=== PATIENT | male | born 1955 | race Caucasian/White ===

== ENCOUNTER 2019-07-28 13:13 | Emergency (ER) | payer MEDICARE, SELFPAY ==
[2019-07-28 13:25] VITALS: BP 134/66; PULSE 57; RESP 16; TEMP 36.6; O2SAT 100
--- NOTE | 2019-07-28 13:46 | ED.GENADULT ---
HPI - General Adult General Chief complaint: Wound/Laceration Stated complaint: lt hand thumb laceration Time Seen by Provider: 07/28/19 13:46 Source: patient Mode of arrival: ambulatory Limitations: no limitations History of Present Illness HPI narrative: 64-year-old male patient presents to the [facility] with complaints of a laceration to the left thumb that occurred today. Patient states that he was working on a home project and used a razor blade to cut the project and states that he actually cut his thumb. Patient is an insulin-dependent diabetic. Patient states that his last tetanus shot was about 2 years ago. Patient states he is currently on blood thinners as well so he is having a hard time trying to get the bleeding to stop. Related Data Home Medications Medication Instructions Recorded Confirmed canagliflozin [Invokana] mg 07/28/19 carvedilol 07/28/19 citalopram mg 07/28/19 clopidogrel 07/28/19 ezetimibe mg 07/28/19 insulin lispro [Humalog U-100 07/28/19 Insulin] levetiracetam PO 07/28/19 lisinopril 07/28/19 metformin mg PO 07/28/19 nifedipine PO 07/28/19 nifedipine PO 07/28/19 pravastatin 07/28/19 Allergies Allergy/AdvReac Type Severity Reaction Status Date / Time No Known Allergies Allergy Verified 07/28/19 13:28 Review of Systems Review of Systems: Narrative: CONSTITUTIONAL: Denies fever, chills, or sweats. EYES: Denies visual changes, redness, or discharge. ENT: Denies rhinorrhea, congestion, sore throat, or otalgia. CARDIOVASCULAR: Denies chest pain, palpitations, or edema. RESPIRATORY: Denies cough or dyspnea. GASTROINTESTINAL: Denies abdominal pain, nausea, vomiting, or diarrhea. GENITOURINARY: Denies dysuria or hematuria. SKIN: Denies rash or itching. Positive laceration left thumb MUSCULOSKELETAL: Denies back pain, joint pain, or myalgia. NEUROLOGIC: Denies headache, numbness, or weakness. PSYCHIATRIC: Denies anxiety or depression. PMFSH Comments At the time of my signature I agree with nursing past medical history, surgical, social, and family history. There is no relevant family history pertinent to the presenting complaint. Exam Narrative: Exam Narrative: GENERAL: Well-appearing, well-nourished, and in no acute distress. HEAD: Normocephalic, atraumatic. EYES: PERRLA and EOMI. ENT: Nares clear, no rhinorrhea or epistaxis. Mucous membranes moist. NECK: Supple. No lymphadenopathy CHEST: Clear to auscultation. No respiratory distress. HEART: Regular rate and rhythm. No murmur heard. Normal peripheral pulses. ABDOMEN: Soft, nontender, nondistended, normal active bowel sounds. EXTREMITIES: Normal range of motion. No edema. SKIN: Warm, dry, no rash. Patient has approximately [facility] 1.5 cm linear laceration over the distal left thumb. The laceration appears to be superficial there still is a little bit of oozing of blood to the thumb. Patient does have excellent range of motion to the thumb with good cap refill. NEURO: No focal deficits. Alert and oriented x3. Course Vital Signs Vital signs: Vital Signs Temperature 36.6 C 07/28/19 13:25 Pulse Rate 57 L 07/28/19 13:25 Respiratory Rate 16 07/28/19 13:25 Blood Pressure 134/66 07/28/19 13:25 Pulse Oximetry 100 07/28/19 13:25 Temperature 36.6 C 07/28/19 13:25 Pulse Rate 57 L 07/28/19 13:25 Respiratory Rate 16 07/28/19 13:25 Blood Pressure 134/66 07/28/19 13:25 Pulse Oximetry 100 07/28/19 13:25 Vital signs reviewed. The patient has been informed that they may have pre-hypertension or Hypertension based on a BP reading in the department. I recommend that the patient call the primary care provider listed on their discharge instructions or a physician of their choice this week to arrange follow up for further evaluation of possible pre-hypertension or Hypertension Procedures Laceration Laceration 1: Date: 07/28/19 Time: 14:10 Site: hand ([facility]
== END 2019-07-28 14:16 | disposition home or self-care (01) ==
PROVIDERS: Emergency Provider Nurse Practitioner Family
DX: S61.012A Laceration without foreign body of left thumb without damage to nail, initial encounter (principal); W26.8XXA Contact with other sharp object(s), not elsewhere classified, initial encounter; E78.00 Pure hypercholesterolemia, unspecified; I10 Essential (primary) hypertension; E11.9 Type 2 diabetes mellitus without complications; I25.10 Atherosclerotic heart disease of native coronary artery without angina pectoris; Z95.5 Presence of coronary angioplasty implant and graft
CPT/HCPCS: 12001; 99213; G0463

== ENCOUNTER 2020-07-20 15:45 | Emergency (ER) | payer MEDICARE, SELFPAY ==
--- NOTE | ~2020-07-20 | XR_ITS ---
EXAMINATION: XR hand LT min 3V INDICATION: Left hand pain, table saw versus hand TECHNIQUE: Three views of the left hand are obtained on four radiographs. COMPARISON: None available FINDINGS: There are large soft tissue defects at the palmar aspect of the first finger near the dista l phalanx and the second finger near the proximal and middle phalanges. No acute underlying osseous a bnormality is identified. There is severe osteoarthritis at the first carpometacarpal joint and sever al interphalangeal joints. Moderate osteoarthritis is noted in the wrist, at the second and third met acarpophalangeal joints, and in the remaining interphalangeal joints. IMPRESSION: 1. Soft tissue defects of the first and second fingers without underlying acute osseous abnormality. 2. Polyarticular osteoarthritis. Reviewed, dictated and finalized at location A. TRANSFER TECHNICIAN
[2020-07-20 15:59] VITALS: BP 168/87; PULSE 64; RESP 17; TEMP 36.3; O2SAT 97
--- NOTE | 2020-07-20 16:00 | ED.GENADULT ---
HPI - General Adult General Chief complaint: Wound/Laceration <Dl Brand MD - Last Filed: 07/20/20 18:04> Stated complaint: finger vs table saw <Dl Brand MD - Last Filed: 07/20/20 18:04> Time Seen by Provider: 07/20/20 15:52 <Dl Brand MD - Last Filed: 07/20/20 18:04> History of Present Illness HPI narrative: Patient is a 65-year-old gentleman who presents the emergency department with chief complaint of a table saw versus left hand. Patient states that he was cutting some wood and on the last cut of the day he hit his hand against a table saw. The patient reports he has a laceration to his left index finger and left thumb. The patient states that it is still bleeding reports that he takes antiplatelet therapy with Plavix for stents. Patient states that he is unsure of his last tetanus shot reports that he has [id number]. Patient reports he is able to move his hand. Patient denies any focal deficits. Patient denies any other injuries. <Dl Brand MD - Last Filed: 07/20/20 18:04> Related Data Home medications: Home Medications Medication Instructions Recorded Confirmed canagliflozin [Invokana] mg 07/28/19 carvedilol 07/28/19 citalopram mg 07/28/19 clopidogrel 07/28/19 ezetimibe mg 07/28/19 insulin lispro [Humalog U-100 07/28/19 Insulin] levetiracetam PO 07/28/19 lisinopril 07/28/19 metformin mg PO 07/28/19 nifedipine PO 07/28/19 nifedipine PO 07/28/19 pravastatin 07/28/19 <Dl Brand MD - Last Filed: 07/20/20 18:04> Allergies/adverse reactions: Allergies Allergy/AdvReac Type Severity Reaction Status Date / Time No Known Allergies Allergy Verified 07/20/20 15:46 <Dl Brand MD - Last Filed: 07/20/20 18:04> Review of Systems Review of Systems: Narrative: A 10 system review of systems was completed on the patient and is negative except for what is stated in the HPI. Nursing and ancillary documentation was reviewed. <Dl Brand MD - Last Filed: 07/20/20 18:04> PMFSH Social History Social History: Social History Gender identity (if verbalized by the patient): Male <Dl Brand MD - Last Filed: 07/20/20 18:04> Comments Past medical history significant for hypertension cardiac disease high cholesterol and diabetes Social history patient lives with his denies illicit drug use <Dl Brand MD - Last Filed: 07/20/20 18:04> Exam Narrative: Exam Narrative: GENERAL: Well-appearing, well-nourished, and in no acute distress. HEAD: Normocephalic, atraumatic. EYES: PERRLA and EOMI. ENT: Nares clear, no rhinorrhea or epistaxis. Mucous membranes moist. NECK: Supple. CHEST: Clear to auscultation. No respiratory distress. HEART: Regular rate and rhythm. No murmur heard. Normal peripheral pulses. ABDOMEN: Soft, nontender, nondistended, normal active bowel sounds. EXTREMITIES: Normal range of motion. No edema. There is a avulsion injury to the left index finger that goes through the nailbed of the left index finger from the MCP joint to the tip of the finger. There is a stellate laceration to the pad of the left. There is no signs of tendon injury SKIN: Warm, dry, no rash. NEURO: No focal deficits. Alert and oriented x3. PSYCH: Normal mood and affect. <Dl Brand MD - Last Filed: 07/20/20 18:04> Course Vital Signs Vital signs: Vital Signs Temperature 97.4 F L 07/20/20 15:59 Pulse Rate 64 07/20/20 15:59 Respiratory Rate 17 07/20/20 15:59 Blood Pressure 168/87 H 07/20/20 15:59 Pulse Oximetry 97 07/20/20 15:59 Temperature 97.4 F L 07/20/20 15:59 Pulse Rate 64 07/20/20 15:59 Respiratory Rate 17 07/20/20 15:59 Blood Pressure 168/87 H 07/20/20 15:59 Pulse Oximetry 97 07/20/20 15:59 <Dl
[2020-07-20] MEDS: ceFAZolin 2 GM/D5W 50 ML 2 GM/50 ML BAG IVPB (16:26)
[2020-07-20] MEDS: TETANUS,DIPHTHERIA,AC PERTUSSIS ADULT (0.5 ML) BOOSTRIX IM (16:26)
[2020-07-20] MEDS: MORPHINE SULFATE (*CRX) 4 MG/ML INJ IV PUSH (16:27)
[2020-07-20] MEDS: LIDOCAINE HCL 1% LOCAL INJ 20 ML VIAL (17:17)
--- NOTE | 2020-07-20 17:56 | ED.GENADULT ---
HPI - General Adult General Chief complaint: Wound/Laceration Stated complaint: finger vs table saw Time Seen by Provider: 07/20/20 15:52 Related Data Home Medications Medication Instructions Recorded Confirmed canagliflozin [Invokana] mg 07/28/19 carvedilol 07/28/19 citalopram mg 07/28/19 clopidogrel 07/28/19 ezetimibe mg 07/28/19 insulin lispro [Humalog U-100 07/28/19 Insulin] levetiracetam PO 07/28/19 lisinopril 07/28/19 metformin mg PO 07/28/19 nifedipine PO 07/28/19 nifedipine PO 07/28/19 pravastatin 07/28/19 Allergies Allergy/AdvReac Type Severity Reaction Status Date / Time No Known Allergies Allergy Verified 07/20/20 15:46 [facility] Social History Social History Gender identity (if verbalized by the patient): Male Course Vital Signs Vital signs: Vital Signs Temperature 97.4 F L 07/20/20 15:59 Pulse Rate 64 07/20/20 15:59 Respiratory Rate 17 07/20/20 15:59 Blood Pressure 168/87 H 07/20/20 15:59 Pulse Oximetry 97 07/20/20 15:59 Temperature 97.4 F L 07/20/20 15:59 Pulse Rate 64 07/20/20 15:59 Respiratory Rate 17 07/20/20 15:59 Blood Pressure 168/87 H 07/20/20 15:59 Pulse Oximetry 97 07/20/20 15:59 Procedures Laceration Laceration 1: Site: hand Side (If applicable): left Size (cm): 7 Description: irregular Depth: simple, single layer Local Anesthetic: lidocaine 1% Amount of anesthesia used (mL): 1.5 Pre-repair: irrigated extensively ====== Skin Level ====== Skin layer closed with: nylon Size (cm): 5-0 Number of sutures: 10 Technique: simple, interrupted ====== Subcutaneous Layer ====== ====== Muscle Layer ====== ====== Tendon Layer ====== Dressing: neosporin and non stick telfa dressing applied. Wound edges came together well. there is slight gaping in the center, but greatly improved and better approximated than in the original state. Surgicell applied to approx 6cm avulsion type laceration on left 2nd digit and bleeding stopped. - Radha Turner PA-C Medical Decision Making Vital Signs Vital Signs: Vital Signs Temperature 97.4 F L 07/20/20 15:59 Pulse Rate 64 07/20/20 15:59 Respiratory Rate 17 07/20/20 15:59 Blood Pressure 168/87 H 07/20/20 15:59 Pulse Oximetry 97 07/20/20 15:59 Temperature 97.4 F L 07/20/20 15:59 Pulse Rate 64 07/20/20 15:59 Respiratory Rate 17 07/20/20 15:59 Blood Pressure 168/87 H 07/20/20 15:59 Pulse Oximetry 97 07/20/20 15:59 Discharge Plan Discharge Clinical Impression: Laceration of hand, left Qualifiers: Encounter type: initial encounter Foreign body presence: without foreign body Qualified Code(s): S61.412A - Laceration without foreign body of left hand, initial encounter Patient Disposition: Home, Self-Care Condition: Stable Instructions: Antibiotic Form, Care For Your Stitches (ED), Finger Laceration (ED), Skin Avulsion (ED) Prescriptions: New cephalexin 500 mg capsule 500 mg PO Q6H 7 Days Qty: 28 RF: 0 No Action nifedipine 30 mg tablet extended release 24hr PO RF: 0 carvedilol 6.25 mg tablet RF: 0 clopidogrel 75 mg tablet RF: 0 citalopram 20 mg tablet RF: 0 pravastatin 80 mg tablet RF: 0 nifedipine 90 mg tablet extended release 24hr PO RF: 0 levetiracetam 750 mg tablet PO RF: 0 insulin lispro [Humalog U-100 Insulin] 100 unit/mL solution RF: 0 lisinopril 40 mg tablet RF: 0 metformin 500 mg tablet extended release 24 hr PO RF: 0 ezetimibe 10 mg tablet RF: 0 Invokana 300 mg tablet RF: 0 cephalexin [Keflex] 500 mg capsule 500 mg PO Q12H 5 Days Qty: 10 RF: 0 Follow-up/Referrals: Yeimi Rivera [Other] (please follow up with your primary care provider in the next 7
[2020-07-20] MEDS: CELLULOSE OXIDIZED 2 x 14 INCH XX (18:44)
[2020-07-20 20:15] VITALS: BP 145/77; PULSE 66; RESP 16; TEMP 37.1; O2SAT 97
== END 2020-07-20 20:16 | disposition home or self-care (01) ==
PROVIDERS: Emergency Provider Emergency Medicine
DX: S61.412A Laceration without foreign body of left hand, initial encounter (principal); W29.8XXA Contact with other powered hand tools and household machinery, initial encounter; Z23 Encounter for immunization
CPT/HCPCS: 12002; 73130; 90471; 90715; 96365; 96375; 99284; J0690; J2270

== ENCOUNTER 2020-08-01 11:42 | Emergency (ER) | payer MEDICARE, SELFPAY ==
[2020-08-01 11:57] VITALS: BP 157/70; PULSE 57; RESP 16; TEMP 36.1; O2SAT 100
--- NOTE | 2020-08-01 12:08 | ED.WOUNDLAC ---
HPI - Wound/Laceration General Chief Complaint: Wound/Laceration Stated Complaint: remove stitches Time Seen by Provider: 08/01/20 11:56 Source: patient, RN notes reviewed and old records reviewed Mode of arrival: ambulatory Limitations: no limitations History of Present Illness HPI narrative: Patient presents today requesting suture removal. He had 10 sutures placed in his left thumb on 07/20/2020 [facility] after it was cut on a table saw. States he has been cleaning his finger with soap and water and applying Neosporin. Denies any other difficulties or pain. Related Data Home Medications Medication Instructions Recorded Confirmed canagliflozin [Invokana] mg 07/28/19 carvedilol 07/28/19 citalopram mg 07/28/19 clopidogrel 07/28/19 ezetimibe mg 07/28/19 insulin lispro [Humalog U-100 07/28/19 Insulin] levetiracetam PO 07/28/19 lisinopril 07/28/19 metformin mg PO 07/28/19 pravastatin 07/28/19 Allergies Allergy/AdvReac Type Severity Reaction Status Date / Time No Known Allergies Allergy Verified 07/20/20 15:46 Review of Systems Review of Systems: Narrative: CONSTITUTIONAL: Denies body aches, fever, chills, or sweats. EYES: Denies visual changes, redness, or discharge. ENT: Denies rhinorrhea, congestion, sore throat, or otalgia. CARDIOVASCULAR: Denies chest pain, palpitations, or edema. RESPIRATORY: Denies cough or dyspnea. GASTROINTESTINAL: Denies abdominal pain, nausea, vomiting, or diarrhea. GENITOURINARY: Denies dysuria or hematuria. SKIN: Denies rash, itching. + Left thumb injury MUSCULOSKELETAL: Denies back pain, joint pain, or myalgia. NEUROLOGIC: Denies headache, numbness, tingling, or weakness. PSYCH: Denies depression or anxiety. [facility] Past Medical History Medical History (Updated 08/01/20 @ 12:15 by Karlie Shaikh, [place], ) Diabetes History of left heart catheterization Hypercholesterolemia Hypertension Surgical History Surgical History (Updated 08/01/20 @ 12:17 by Karlie Shaikh, [place], ) H/O heart artery stent Social History Social History : Male Comments At time of signature, I have reviewed and agree with nursing past medical, surgical, social and family history unless otherwise noted. Please see nursing chart for further information. There is no relevant family history pertinent to the presenting complaint Exam Narrative: Exam Narrative: GENERAL: Well-appearing, well-nourished, and in no acute distress. HEAD: Normocephalic, atraumatic. EYES: EOMI. No redness or drainage. Conjunctivae normal. ENT: Mucous membranes pink and moist. NECK: Normal AROM. CHEST: No respiratory distress. EXTREMITIES: Normal range of motion. No edema. SKIN: Warm, dry, no rash. Capillary refill normal. Normal skin turgor. Healing laceration to the palmar aspect of the left thumb without signs of infection. Patient has a large scabbed abrasion throughout the length of the second finger without signs of infection. NEURO: No focal deficits. Alert and oriented x3. Gait steady. PSYCH: Normal affect. No signs of depression or anxiety. Course Vital Signs Vital signs: Vital Signs Temperature 96.9 F L 08/01/20 11:57 Pulse Rate 57 L 08/01/20 11:57 Respiratory Rate 16 08/01/20 11:57 Blood Pressure 157/70 H 08/01/20 11:57 Pulse Oximetry 100 08/01/20 11:57 Temperature 96.9 F L 08/01/20 11:57 Pulse Rate 57 L 08/01/20 11:57 Respiratory Rate 16 08/01/20 11:57 Blood Pressure 157/70 H 08/01/20 11:57 Pulse Oximetry 100 08/01/20 11:57 Reviewed. Pt has been instructed to follow up with his PCP regarding his elevated blood pressure today. Procedures Other Procedure Procedure 1: Other Procedure: 10 sutures were removed from patient's left thumb. No signs of infection. Seems to be healing well. Patient tolerated procedure well. Dres
== END 2020-08-01 12:21 | disposition home or self-care (01) ==
PROVIDERS: Emergency Provider Nurse Practitioner
DX: S61.012D Laceration without foreign body of left thumb without damage to nail, subsequent encounter (principal); W27.0XXD Contact with workbench tool, subsequent encounter; E11.9 Type 2 diabetes mellitus without complications; E78.00 Pure hypercholesterolemia, unspecified; I10 Essential (primary) hypertension
CPT/HCPCS: 99211; G0463

== ENCOUNTER 2020-09-28 12:31 | Emergency (ER) | payer MEDICARE, SELFPAY ==
--- NOTE | 2020-09-28 12:35 | ED.WOUNDLAC ---
HPI - Wound/Laceration General Chief Complaint: Wound/Laceration Stated Complaint: L HAND LACERATION Source: patient Mode of arrival: ambulatory Limitations: no limitations History of Present Illness HPI narrative: Patient is a 65-year-old male who presents with a laceration to left hand. He reports cutting hand while using a chisel. Bleeding is controlled with dressing. Patient denies all other injuries. Patient reports tetanus is up-to-date. Related Data Home Medications Medication Instructions Recorded Confirmed canagliflozin [Invokana] mg 07/28/19 carvedilol 07/28/19 citalopram mg 07/28/19 clopidogrel 07/28/19 ezetimibe mg 07/28/19 insulin lispro [Humalog U-100 07/28/19 Insulin] levetiracetam PO 07/28/19 lisinopril 07/28/19 metformin mg PO 07/28/19 pravastatin 07/28/19 Allergies Allergy/AdvReac Type Severity Reaction Status Date / Time No Known Allergies Allergy Verified 07/20/20 15:46 Review of Systems Review of Systems: Narrative: CONSTITUTIONAL: Denies fever, chills, or sweats. EYES: Denies visual changes, redness, or discharge. ENT: Denies rhinorrhea, congestion, sore throat, or otalgia. CARDIOVASCULAR: Denies chest pain, palpitations, or edema. RESPIRATORY: Denies cough or dyspnea. GASTROINTESTINAL: Denies abdominal pain, nausea, vomiting, or diarrhea. GENITOURINARY: Denies dysuria or hematuria. SKIN: Laceration left hand MUSCULOSKELETAL: Denies back pain, joint pain, or myalgia. NEUROLOGIC: Denies headache, numbness, dizziness, or weakness. PSYCHIATRIC: Denies anxiety or depression. [facility] Past Medical History Medical History Diabetes History of left heart catheterization Hypercholesterolemia Hypertension Surgical History Surgical History H/O heart artery stent Social History Social History Gender identity (if verbalized by the patient): Male Comments At the time of signature, I have reviewed and agree with nursing past medical, surgical, social, and family history unless otherwise noted. Please see nursing chart for further information. There is no relevant family history pertinent to the presenting complaint. Exam Narrative: Exam Narrative: GENERAL: Well-appearing, well-nourished, and in no acute distress. HEAD: Normocephalic, atraumatic. EYES: EOMI. No redness or drainage. ENT: Mucous membranes pink and moist. CHEST: No respiratory distress. HEART: Regular rate and rhythm. EXTREMITIES: Normal range of motion. SKIN: Approximate 2.5 cm laceration to thenar palm, bleeding controlled. NEURO: No focal deficits. Alert and oriented x3. Gait steady. PSYCH: Normal affect. No signs of depression or anxiety. Procedures Laceration Laceration 1: Date: 09/28/20 Time: 13:12 Site: hand Side (If applicable): left Size (cm): 2.5 Description: linear Depth: simple, single layer Local Anesthetic: lidocaine 1% Amount of anesthesia used (mL): 3 Pre-repair: irrigated ====== Skin Level ====== Skin layer closed with: nylon Size (cm): 5-0 Technique: simple, interrupted ====== Subcutaneous Layer ====== Subcutaneous layer closed with: vicryl Size: 5-0 Number of sutures: 2 Technique: simple, interrupted ====== Muscle Layer ====== ====== Tendon Layer ====== Dressing: Neosporin, telfa, 4x4 and coban MDM - Wound/Laceration MDM Narrative Medical decision making narrative: Laceration to thenar palm cleansed and sutured. Dressing applied. Patient instructed on wound care. Patient is stable for discharge to home with outpatient follow up as directed. Differential Diagnosis Differential diagnosis: Likely laceration, abrasion and avulsion of skin Critical Care Time Critical Ca
[2020-09-28 12:39] VITALS: BP 162/58; PULSE 62; RESP 16; TEMP 36.3; O2SAT 100
== END 2020-09-28 13:22 | disposition home or self-care (01) ==
PROVIDERS: Emergency Provider Nurse Practitioner
DX: S61.412A Laceration without foreign body of left hand, initial encounter (principal); W27.0XXA Contact with workbench tool, initial encounter; E11.9 Type 2 diabetes mellitus without complications; E78.00 Pure hypercholesterolemia, unspecified; I10 Essential (primary) hypertension; Z95.5 Presence of coronary angioplasty implant and graft
CPT/HCPCS: 12001; 99212; G0463

== ENCOUNTER 2020-09-29 08:03 | Emergency (ER) | payer SELFPAY ==
[2020-09-29 08:11] VITALS: BP 163/76; PULSE 89; RESP 16; TEMP 36.5; O2SAT 99
--- NOTE | 2020-09-29 08:42 | ED.WOUNDLAC ---
HPI - Wound/Laceration General Chief Complaint: Wound/Laceration Stated Complaint: stitches came out Time Seen by Provider: 09/29/20 08:15 Source: patient and RN notes reviewed Mode of arrival: ambulatory Limitations: no limitations History of Present Illness HPI narrative: Patient presents today stating bleeding from a laceration. He cut himself on a chisel yesterday and was seen here at [facility] where he received some sutures. States he had 2 internal sutures placed and 4 external sutures placed. Reports he has kept the dressing on from yesterday, but woke up this morning with blood all over his pillow. He did replace the bloody dressing then came in for evaluation. Denies any current pain, numbness, or tingling. He has tried no other interventions at home prior to arrival. Patient is diabetic. He is up-to-date on his tetanus vaccine. Related Data Home Medications Medication Instructions Recorded Confirmed citalopram 20 mg PO DAILY 07/28/19 09/29/20 clopidogrel 75 mg PO DAILY 07/28/19 09/29/20 ezetimibe 10 mg PO DAILY 07/28/19 09/29/20 insulin lispro [Humalog U-100 See Rx Instructions .ROUTE .COMPLEX 07/28/19 09/29/20 Insulin] levetiracetam 750 mg PO BID 07/28/19 09/29/20 lisinopril 40 mg PO DAILY 07/28/19 09/29/20 metformin 500 mg PO BID 07/28/19 09/29/20 pravastatin 80 mg PO DAILY 07/28/19 09/29/20 carvedilol 12.5 mg PO BID 09/29/20 09/29/20 empagliflozin [Jardiance] 25 mg PO BID 09/29/20 09/29/20 nifedipine 90 mg PO DAILY 09/29/20 09/29/20 Allergies Allergy/AdvReac Type Severity Reaction Status Date / Time No Known Allergies Allergy Verified 09/29/20 08:23 Review of Systems Review of Systems: Narrative: CONSTITUTIONAL: Denies body aches, fever, chills, or sweats. EYES: Denies visual changes, redness, or discharge. ENT: Denies rhinorrhea, congestion, sore throat, or otalgia. CARDIOVASCULAR: Denies chest pain, palpitations, or edema. RESPIRATORY: Denies cough or dyspnea. GASTROINTESTINAL: Denies abdominal pain, nausea, vomiting, or diarrhea. GENITOURINARY: Denies dysuria or hematuria. SKIN: Denies rash, itching. + Laceration to left thumb MUSCULOSKELETAL: Denies back pain, joint pain, or myalgia. NEUROLOGIC: Denies headache, numbness, tingling, or weakness. PSYCH: Denies depression or anxiety. [facility] Past Medical History Medical History Diabetes History of left heart catheterization Hypercholesterolemia Hypertension Surgical History Surgical History H/O heart artery stent Social History Social History Gender identity (if verbalized by the patient): Male Comments At time of signature, I have reviewed and agree with nursing past medical, surgical, social and family history unless otherwise noted. Please see nursing chart for further information. There is no relevant family history pertinent to the presenting complaint Exam Narrative: Exam Narrative: GENERAL: Well-appearing, well-nourished, and in no acute distress. HEAD: Normocephalic, atraumatic. EYES: EOMI. No redness or drainage. Conjunctivae normal. ENT: Mucous membranes pink and moist. NECK: Normal AROM. CHEST: No respiratory distress. EXTREMITIES: Normal range of motion. No edema. SKIN: Warm, dry, no rash. Capillary refill normal. Normal skin turgor. 2 cm laceration to the left thenar eminence. 2 sutures are fully untied. The other 2 sutures are almost all the way untied. No active bleeding. Distal sensation intact. Capillary refill normal. Full range of motion of the finger. NEURO: No focal deficits. Alert and oriented x3. Gait steady. PSYCH: Normal affect. No signs of depression or anxiety. Course Vital Signs Vital signs: Vital Signs Temperature 97.7 F 09/29/20 08:11 Pulse Rate 89 09/29/20 08:11 Respiratory Rate 16 09/29/20 08:11 Blood
== END 2020-09-29 08:59 | disposition home or self-care (01) ==
PROVIDERS: Emergency Provider Nurse Practitioner
DX: T81.33XA Disruption of traumatic injury wound repair, initial encounter (principal); E11.9 Type 2 diabetes mellitus without complications; E78.00 Pure hypercholesterolemia, unspecified; I10 Essential (primary) hypertension
CPT/HCPCS: 99213; G0463

== ENCOUNTER 2020-10-06 15:20 | Emergency (ER) | payer MEDICARE, SELFPAY ==
[2020-10-06 15:27] VITALS: BP 193/66; PULSE 54; RESP 16; TEMP 35.9; O2SAT 99
--- NOTE | 2020-10-06 15:40 | ED.GENADULT ---
HPI - General Adult General Chief complaint: Wound/Laceration Stated complaint: suture removal Time Seen by Provider: 10/06/20 15:40 Source: patient and RN notes reviewed Mode of arrival: ambulatory Limitations: no limitations History of Present Illness HPI narrative: 65-year-old male presents to have sutures removed from LT hand. Healing wound to LT hand with [address] No concern for infection of wound. No tenderness, erythema, or swelling to area. No fever or chills. No drainage. No streaking. Wily has been following recent discharge instructions. RIGHT HAND is dominant hand. Remains active. Immunizations up-to-date. The patient reports he have not been diagnosed with COVID-19. The patient reports he received 2 [employer] COVID-19 vaccines. The patient reports he is not waiting for the results of a COVID-19 lab test. The patient reports he do not have weakness or fatigue. The patient reports he do not have a new or worsening cough or shortness of breath. Denies chest pain. The patient reports he do not have any rhinorrhea, congestion, loss of taste or smell, sore throat, nausea, vomiting, abdominal pain, and diarrhea. Tolerating po intake well. Denies recent traveling. Denies concerns for COVID-19 or exposures been home with limited outdoor exposure except for essential household needs and return home. At this time, patient is not suspected of having COVID-19. Some parts of this dictation were generated by voice recognition software and may contain typographical and/or grammatical inaccuracies. Related Data Home Medications Medication Instructions Recorded Confirmed citalopram 20 mg PO DAILY 07/28/19 10/06/20 clopidogrel 75 mg PO DAILY 07/28/19 10/06/20 ezetimibe 10 mg PO DAILY 07/28/19 10/06/20 insulin lispro [Humalog U-100 See Rx Instructions .ROUTE .COMPLEX 07/28/19 10/06/20 Insulin] levetiracetam 750 mg PO BID 07/28/19 10/06/20 lisinopril 40 mg PO DAILY 07/28/19 10/06/20 metformin 500 mg PO BID 07/28/19 10/06/20 pravastatin 80 mg PO DAILY 07/28/19 10/06/20 carvedilol 12.5 mg PO BID 09/29/20 10/06/20 empagliflozin [Jardiance] 25 mg PO BID 09/29/20 10/06/20 nifedipine 90 mg PO DAILY 09/29/20 10/06/20 Allergies Allergy/AdvReac Type Severity Reaction Status Date / Time No Known Allergies Allergy Verified 10/06/20 15:25 Review of Systems Review of Systems: Narrative: CONSTITUTIONAL: Denies fever, chills, sweats. EYES: Denies visual changes, redness, discharge. ENT: Denies rhinorrhea, congestion, sore throat, otalgia. CARDIOVASCULAR: Denies chest pain, palpitations, edema. RESPIRATORY: Denies dyspnea, wheezing, cough. GASTROINTESTINAL: Denies abdominal pain, nausea, vomiting, diarrhea. GENITOURINARY: Denies dysuria, hematuria, abnormal discharge. SKIN: Denies rash or itching. Complains of needing sutures removed from left hand. MUSCULOSKELETAL: Denies acute back pain, joint pain, or myalgia. NEUROLOGIC: Denies numbness or focal weakness. PSYCHIATRIC: Denies anxiety or depression. All other systems reviewed are negative, except as documented in HPI and below. [facility] Past Medical History Medical History (Updated 10/07/20 @ 00:01 by [facility] Yara) Diabetes History of left heart catheterization Hypercholesterolemia Hypertension Lipoma Surgical History Surgical History (Updated 10/06/20 @ 15:55 by MILDRED Ventura) H/O heart artery stent History of surgical removal of lesion Multiple lipomas removed from back Family History Family History (Updated 10/06/20 @ 15:55 by MILDRED Ventura) Father Cancer Mother Cancer Social History Social History (Updated 10/06/20 @ 17:55 by MILDRED Ventura) Smoking status: Former smoker Tobacco type: cigarettes Second hand tobacco smoke exposure: No Smoking end date: 06/10/85 Alcohol intake: former Alcohol use details: Quit in 1988 Substance use: never Living arrangements: w
== END 2020-10-06 16:07 | disposition home or self-care (01) ==
PROVIDERS: Emergency Provider Nurse Practitioner Family
DX: S61.412D Laceration without foreign body of left hand, subsequent encounter (principal); X58.XXXD Exposure to other specified factors, subsequent encounter; E11.9 Type 2 diabetes mellitus without complications; E78.00 Pure hypercholesterolemia, unspecified; I10 Essential (primary) hypertension; Z95.5 Presence of coronary angioplasty implant and graft
CPT/HCPCS: 99211; G0463

== ENCOUNTER 2022-08-14 16:31 | Inpatient (IN) | payer MEDICARE, SELFPAY ==
[2022-08-14] VITALS (10 sets, daily range): BP systolic 114–157; BP diastolic 60–74; PULSE 49–63; RESP 12–18; TEMP 36.7–36.8; O2SAT 96–100; BMI 29.7
--- NOTE | ~2022-08-14 | CT_ITS ---
EXAMINATION: CT brain wo con DATE: 08/14/2022 17:25 INDICATION: trauma . TECHNIQUE: Computed tomography (CT) of the head was performed without intravenous contrast. The mA wa s adjusted according to patient size. Iterative reconstruction technique was employed. The dose-lengt h product was 681.00 mGy-cm. COMPARISON: None. FINDINGS: No acute intracranial hemorrhage or extra-axial fluid collection. No hydrocephalus, mass, or herniation. No acute ischemic infarct. Unremarkable dural venous sinus attenuation. Left orbital floor fracture, with possible involvement of the inferior rectus muscle. Mixed density hemorrhage and aerated secretions in the left maxillary sinus, the remaining aerated sp aces are clear. Mild atrophy and chronic white matter change. Atherosclerotic intracranial calcification. Bilateral l ens replacements. IMPRESSION: No acute intracranial process. Left orbital floor fracture with possible extraocular muscle involveme nt. Consider CT of the face for further evaluation. Reviewed, dictated and finalized at location K. ISSIONER OF OFFICIALS IMPRESSION: No acute intracranial process. Left orbital floor fracture with possible extrao cular muscle involvement. Consider CT of the face for further evaluation.
--- NOTE | ~2022-08-14 | XR_ITS ---
XR chest 2V DATE: 08/14/2022 17:11 INDICATION: Left chest pain. Syncopal episode this morning. TECHNIQUE: AP and lateral views COMPARISON: None FINDINGS: Normal heart size. Aortic arch calcification. No hilar or mediastinal enlargement. No pulmonary infiltrate or consolidation, pleural effusion or pulmonary vascular congestion or pneumo thorax. IMPRESSION: No active cardiopulmonary disease Aortic atherosclerosis Reviewed, dictated and finalized at location L. BACK COORDINATOR
--- NOTE | ~2022-08-14 | CT_ITS ---
EXAMINATION: CT facial bones wo con DATE: 08/14/2022 18:07 INDICATION: trauma . TECHNIQUE: Computed tomography (CT) of the facial bones and maxillofacial region was performed withou t intravenous contrast. Automated exposure control and iterative reconstruction technique were employ ed. The dose-length product was 322.72 mGy-cm. COMPARISON: CT brain, same date. FINDINGS: Soft Tissues: Soft tissue swelling over the left cheek. Facial bones: Mildly comminuted and inferiorly displaced fracture of the left orbital floor, with a nondisplaced fracture line extending along the lateral maxillary sinus wall. No lytic or blastic proc ess. Eyes: The globes are intact. Small focus of herniated intraorbital fat in the orbital floor fracture . Mild thickening of the posterior aspect of the inferior rectus muscle, without brielle herniation/ent rapment. Mild fat stranding/hemorrhage surrounding the inferior rectus muscle. Paranasal Sinuses: Hemorrhage and aerated secretions with an air-fluid level present in the left max illary sinus. Foreign Bodies: No radiopaque foreign bodies. Other Findings: Degenerative changes in the cervical spine. IMPRESSION: Left orbital floor fracture with herniation of a small focus of intraorbital fat. Mild thickening of the inferior rectus muscle posteriorly, with surrounding mild hemorrhage, correlate for clinical find ings of extraocular muscle involvement. Left maxillary sinus hemorrhage. Reviewed, dictated and finalized at location K. NG MACHINE OPERATOR IMPRESSION: Left orbital floor fracture with herniation of a small focus of intraorbital fa t. Mild thickening of the inferior rectus muscle posteriorly, with surrounding mild hemorrhage, correlate for clinical findings of extraocular muscle involvem ent. Left maxillary sinus hemorrhage.
--- NOTE | 2022-08-14 16:39 | ECG_ITS ---
Measurements Intervals [place] Rate: 49 P: 55 TX: 214 QRS: -81 QRSD: 140 T: 39 QT: 516 QTc: 470 Interpretive Statements SINUS BRADYCARDIA WITH FIRST DEGREE AV BLOCK LEFT AXIS DEVIATION RIGHT BUNDLE BRANCH BLOCK INFERIOR INFARCT, AGE INDETERMINATE ANTEROSEPTAL INFARCT, AGE INDETERMINATE ABNORMAL ECG NO PREVIOUS ECG AVAILABLE FOR COMPARISON Electronically Signed On 08-14-2022 16:55:55 AUDIT REVIEWER by Agustin Dangelo D.O.
--- NOTE | 2022-08-14 16:57 | ED.CHESTPAIN ---
HPI - Chest Pain General Chief Complaint: Chest Pain Stated Complaint: chest pain Time Seen by Provider: 08/14/22 16:51 History of Present Illness HPI narrative: Pt presents with lef sided CP for about an hour. Pt describes it as sharp and non radiating. Pt says that he smeeled a gas smell in his house today. Pt says he was taking nap and got up and passed out and fell to ground sriking head. Pt denies JUAREZ. Per EMS CO level was high in house. Related Data Home Medications Medication Instructions Recorded Confirmed citalopram 20 mg tablet 20 mg PO DAILY 07/28/19 10/06/20 clopidogrel 75 mg tablet 75 mg PO DAILY 07/28/19 10/06/20 ezetimibe 10 mg tablet 10 mg PO DAILY 07/28/19 10/06/20 insulin lispro 100 unit/mL See Rx Instructions .Route .COMPLEX 07/28/19 10/06/20 subcutaneous solution (Humalog U-100 Insulin) levetiracetam 750 mg tablet 750 mg PO BID 07/28/19 10/06/20 lisinopril 40 mg tablet 40 mg PO DAILY 07/28/19 10/06/20 metformin 500 mg tablet,extended 500 mg PO BID 07/28/19 10/06/20 release 24 hr pravastatin 80 mg tablet 80 mg PO DAILY 07/28/19 10/06/20 carvedilol 12.5 mg tablet 12.5 mg PO BID 09/29/20 10/06/20 empagliflozin 25 mg tablet 25 mg PO BID 09/29/20 10/06/20 (Jardiance) nifedipine 90 mg tablet,extended 90 mg PO DAILY 09/29/20 10/06/20 release 24 hr Allergies Allergy/AdvReac Type Severity Reaction Status Date / Time No Known Allergies Allergy Verified 10/06/20 15:25 Review of Systems Review of Systems: All systems reviewed & are unremarkable except as noted in HPI and below PMFSH Past Medical History Medical History (Updated 08/14/22 @ 18:07 by Jacky Glynn III, DO) Diabetes History of left heart catheterization Hypercholesterolemia Hypertension Lipoma Surgical History Surgical History (Updated 10/06/20 @ 15:55 by MILDRED Ventura) H/O heart artery stent History of surgical removal of lesion Multiple lipomas removed from back Family History Family History (Updated 10/06/20 @ 15:55 by MILDRED Ventura) Father Cancer Mother Cancer Social History Social History (Updated 10/06/20 @ 17:55 by MILDRED Ventura) Smoking status: Former smoker Tobacco type: cigarettes Second hand tobacco smoke exposure: No Smoking end date: 06/10/85 Alcohol intake: former Alcohol use details: Quit in 1988 Substance use: never Living arrangements: with family Occupation/Education: retired Gender identity (if verbalized by the patient): Male Sexual Orientation (if Verbalized by the Patient): Straight or Heterosexual Exam Const: General: healthy appearing Nutritional Appearance: well nourished Orientation/consciousness: patient oriented x3 Limitations: no limitations HENMT: Head: contusion (abrasion to forehead and echymosis but no swelling below left eye) Eyes: EOM: EOMs intact bilaterally Other: no signs of entrapment of EOM Neck: Neck: normal visual inspection and no lymphadenopathy Chest: Chest palpation & inspection: tenderness (left chest intercostal muscles reproduces pain) Resp: Effort & Inspection: normal respiratory effort Auscultation: clear to auscultation bilaterally Other: pt hyperventilating a bit on initial exam. Cardio: Rate: regular rate Rhythm: regular rhythm Skin: General skin exam: normal color Wounds: no wounds Neuro: General: patient oriented x3, moves all extremities, no meningeal signs, no focal motor deficits and CN's II-XI intact bilaterally Speech: normal speech Extrem: General: normal to inspection and no clubbing, cyanosis or edema Psych: Mental Status: mental status grossly normal Affect: normal affect Attitude: cooperative Course Vital Signs Vital signs: Vital Signs Temperature 98.3 F 08/14/22 16:48 Pulse Rate 49 L 08/14/22 16:48 Respiratory Rate 18 08/14/22 16:48 Blood Pressure 114/72 08/14/22 16:48 Pulse Oximetry 100 08/14/22 16:48 Ox
[2022-08-14 17:04] LABS: Basophils Percent Auto 0.2 % (0.2-1.2); Eosinophils Percent Auto 0.1 % (0-4.4); Hematocrit 42.8 % (42.0-52.0); Hemoglobin 15.5 g/dL (14.0-18.0); Immature Granulocyte Absolute 0.04 K/mm3 (0.00-0.031); Immature Granulocyte Percent A 0.4 % (0-0.5); Lymphocytes Absolute Auto 0.64 K/mm3 (0.9-3.2); Lymphocytes Percent Auto 6.3 % (18.3-44.2); Mean Corpuscular HGB Conc 36.2 g/dl (32-36); Mean Corpuscular Hemoglobin 30.5 pg (26-34); Mean Corpuscular Volume 84.1 fl (80-100); Mean Platelet Volume 8.8 fl (7.4-10.4); Monocytes Absolute Auto 0.9 K/mm3 (0.1-0.6); Monocytes Percent Auto 8.6 % (2.6-8.5); Neutrophils Absolute Auto 8.6 K/mm3 (1.3-6.7); Neutrophils Percent Auto 84.4 % (45.5-73.1); Platelet Count Result 173 k/mm3 (150-375); Red Blood Count 5.09 M/mm3 (4.6-6.20); Red Cell Distribution Width 11.9 % (11.5-14.5); White Blood Count 10.2 K/mm3 (4.5-10.0)
[2022-08-14 17:15] LABS: Prothrombin Time 13.1 Seconds (11.1-14.7)
[2022-08-14 17:16] LABS: Partial Thromboplastin Time 28.2 SECONDS (22.3-36.8)
[2022-08-14 17:18] LABS: Base Excess ABG 4.2 mEq/l (+/-2.0); Fractional Inspired Oxygen 21 %; Oxygen Content ABG 21.9 %vol (16.0-22.0); Oxygen Saturation ABG 98.5 % (95.0-100.0); Oxyhemoglobin 96.8 % THb (90.0-100.0); PCO2 ABG 31.3 mmHg (35.0-45.0); PO2 ABG 108.3 mmHg (80.0-100.0); PO2 FiO2 Ratio Arterial Blood 5.16 %
[2022-08-14 17:19] LABS: pH ABG 7.538 (7.350-7.450)
[2022-08-14 17:20] LABS: Device ROOM AIR; Modified Allen's Test Pass; Site Drawn RIGHT RADIAL
[2022-08-14 17:46] LABS: Alanine Aminotransferase 28 U/L (6-50); Albumin Level 4.3 g/dL (3.5-5.1); Alkaline Phosphatase 59 U/L (38-126); Anion Gap 8 mmol/L (8-16); Aspartate Amino Transferase 35 U/L (17-59); Bilirubin,Total 1.4 mg/dL (0.2-1.3); Blood Urea Nitrogen 11 mg/dL (9-20); Calcium 7.8 mg/dL (8.4-10.2); Carbon Dioxide 30 mmol/L (22-30); Chloride 75 mmol/L (98-107); Estimated Glomerular Filt Rate > 60; Glucose 116 mg/dL (65-110); Lipase 111 U/L (23-300); Potassium 2.6 mmol/L (3.4-5.0); Sodium 113 mmol/L (137-145)
[2022-08-14 17:51] LABS: Troponin I < 0.012 ng/mL (0.000-0.034)
[2022-08-14] MEDS: POTASSIUM CHLORIDE 20 MEQ TABLET 40 MEQ PO (18:19)
[2022-08-14] MEDS: SODIUM CHLORIDE 0.9% IV 1,000 ML 125 ML IV CONT (18:19)
[2022-08-14 20:21] LABS: Troponin I < 0.012 ng/mL (0.000-0.034)
--- NOTE | 2022-08-14 21:08 | PM.IMHP ---
H&P: HPI History of Present Illness Date/Time: 08/14/22 21:08 Chief Complaint: Chest pain Narrative: The patient came to the emergency room with complaint of left-sided chest pain for an hour. Patient stated was nonradiating. The patient stated that he please see had a gas leak at home. The patient has been having headaches and dizziness. The patient was taking a nap any got from his nap in passed out and fell on the ground he landed on his face. He has a hematoma over the left eye socket. The patient stated that the fire department came to his house and they found that he has a gas leak. White count 10.2. Neutrophil percentage 84.4. Neutrophils 6.3. [place] percentage 8.6. ABG 7.538. CO2 is 31.3. Patient's initial sodium was 113 and is now 112. Potassium was 2.6 now 3.4. Troponins are negative x3. Patient was given an aspirin and potassium 40 mEq p.o. and IV fluids. Nephrology has been consulted for hyponatremia. The patient was given 1 L of IV fluids. The patient had been on an insulin pump and has removed it. The CT was read as left orbital floor fracture with herniation of a small focus of anterior a orbital fat. Mild thickening of the inferior rectus muscle posteriorly with surrounding mild hemorrhage correlate for clinical findings of extraocular muscle movement. Left maxillary sinus hemorrhage. Patient has extraocular motion. The patient is being admitted for observation status on the date of service of 08/14/2022. Review of Systems Review of Systems: See HPI All systems reviewed & are unremarkable except as noted in HPI and below Constitutional: Constitutional: Reports as per HPI and Reports no additional constitutional complaints Eyes: Eyes: Reports as per HPI and Reports no additional eye complaints ENT: Reports system reviewed and no additional complaints, except as documented and Reports Normal hearing present Cardiovascular: Cardiovascular: Reports no additional cardiovascular complaints Respiratory: Respiratory: Reports no additional respiratory complaints and Reports no additional respiratory complaints Gastrointestinal: Gastrointestinal: Reports as per HPI and Reports no additional gastrointestinal complaints Musculoskeletal: Musculoskeletal: Reports no additional musculoskeletal complaints Integumentary/Breasts: Skin/Breast: Reports system reviewed and no additional complaints, except as docu and Reports as per HPI Neurologic: Reports system reviewed and no additional complaints, except as documented, Reports as per HPI and Reports Normal hearing present Psychiatric: Psychiatric: Reports no additional psychiatric complaints and Reports as per HPI Endocrine: Endocrine: Reports no additional endocrine complaints Hematologic/Lymphatic: Hematologic/Lymphatic: Reports no additional hematologic/lymphatic complaints Allergic/Immunologic: Allergic/Immunologic: Reports no additional allergic/immunologic complaints [facility] Past Medical History Medical History (Updated 08/15/22 @ 01:06 by Jordyn Gallagher NP) Anxiety Diabetes History of left heart catheterization History of seizures Hypercholesterolemia Hypertension Lipoma Surgical History Surgical History (Updated 08/15/22 @ 00:52 by Jordyn Gallagher NP) H/O heart artery stent X3 History of surgical removal of lesion Multiple lipomas removed from back Family History Family History Father Cancer Mother Cancer Social History Social History (Updated 08/15/22 @ 00:53 by Jordyn Gallagher NP) Social History: The patient is and lives with his . He lives in a rental property. He has 4 children. 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 He is a former smoker. His is the durable power tax associate attorney for healthcare. Code status full code Smoking status: Former smoker Tobacco type: cigarettes Second hand tobacco smoke exposure: No Smoking
--- NOTE | 2022-08-14 21:34 | ADMGEN ---
This patient, Wily Osman, was admitted to [facility] Surg Room 306-02. Patient/family oriented to hospital policies and general routines including ID bracelet, bed and alarms, visiting hours, pain management, procedures, bathroom and other care routines, personal items, smoking policy, room service/diet, and visiting hours. Information on how to activate the Rapid Response Team has been discussed. Patient/Family are encouraged to report perceived risks to care and to ask questions if they do not understand what they are told or what they should do.
[2022-08-14 23:54] LABS: Anion Gap 10 mmol/L (8-16); Blood Urea Nitrogen 11 mg/dL (9-20); Carbon Dioxide 26 mmol/L (22-30); Chloride 76 mmol/L (98-107); Estimated CRCL calculation 90 ml/min; Estimated Glomerular Filt Rate > 60; Glucose 130 mg/dL (65-110); Potassium 3.4 mmol/L (3.4-5.0); Sodium 112 mmol/L (137-145)
[2022-08-14 23:57] LABS: Troponin I < 0.012 ng/mL (0.000-0.034)
[2022-08-15] VITALS (15 sets, daily range): BP systolic 106–160; BP diastolic 62–78; PULSE 58–84; RESP 16–18; TEMP 36.1–36.4; O2SAT 100
[2022-08-15 04:18] LABS: Potassium Urine Random 8.9 meq/L
[2022-08-15 07:11] LABS: Basophils Percent Auto 0.2 % (0.2-1.2); Eosinophils Percent Auto 0.5 % (0-4.4); Immature Granulocyte Absolute 0.06 K/mm3 (0.00-0.031); Immature Granulocyte Percent A 0.7 % (0-0.5); Lymphocytes Absolute Auto 0.92 K/mm3 (0.9-3.2); Lymphocytes Percent Auto 10.5 % (18.3-44.2); Mean Corpuscular HGB Conc 35.7 g/dl (32-36); Mean Corpuscular Hemoglobin 30.3 pg (26-34); Mean Corpuscular Volume 84.8 fl (80-100); Mean Platelet Volume 9.4 fl (7.4-10.4); Monocytes Absolute Auto 1.2 K/mm3 (0.1-0.6); Neutrophils Absolute Auto 6.5 K/mm3 (1.3-6.7); Neutrophils Percent Auto 74.1 % (45.5-73.1); Platelet Count Result 161 k/mm3 (150-375); Red Blood Count 4.95 M/mm3 (4.6-6.20); White Blood Count 8.8 K/mm3 (4.5-10.0)
[2022-08-15 07:22] LABS: Lactic Acid Reflex 1.4 mmol/L (0.7-2.0)
[2022-08-15 07:26] LABS: Alanine Aminotransferase 30 U/L (6-50); Albumin Level 4.2 g/dL (3.5-5.1); Alkaline Phosphatase 60 U/L (38-126); Anion Gap 9 mmol/L (8-16); Aspartate Amino Transferase 36 U/L (17-59); Bilirubin,Total 1.4 mg/dL (0.2-1.3); Blood Urea Nitrogen 10 mg/dL (9-20); Carbon Dioxide 29 mmol/L (22-30); Chloride 82 mmol/L (98-107); Estimated CRCL calculation 79 ml/min; Estimated Glomerular Filt Rate > 60; Glucose 104 mg/dL (65-110); Magnesium 2.3 mg/dL (1.6-2.3); Potassium 3.5 mmol/L (3.4-5.0); Sodium 120 mmol/L (137-145)
[2022-08-15] MEDS: SODIUM CHLORIDE 0.9% IV 1,000 ML 125 ML IV CONT ×2 (07:42→15:41)
[2022-08-15 07:50] LABS: Glucose Point of Care 114 mg/dl (65-105)
[2022-08-15 07:55] LABS: Hemoglobin A1C 5.5 % (<5.7)
[2022-08-15] MEDS: EMPAGLIFLOZIN 25 MG TABLET PO (08:05)
[2022-08-15] MEDS: levETIRAcetam 250 MG TABLET 750 MG PO ×2 (08:05→21:28)
[2022-08-15] MEDS: CITALOPRAM HYDROBROMIDE 20 MG TABLET PO (08:05)
[2022-08-15] MEDS: CLOPIDOGREL BISULFATE 75 MG TABLET PO (08:05)
[2022-08-15] MEDS: EZETIMIBE 10 MG TABLET PO (08:05)
[2022-08-15] MEDS: PRAVASTATIN SODIUM 20 MG TABLET 80 MG PO (08:05)
[2022-08-15] MEDS: carvediloL 12.5 MG TABLET PO ×2 (08:06→21:26)
[2022-08-15 08:38] LABS: Thyroid Stimulating Hormone Reflex 0.516 uIU/mL (0.465-4.68)
[2022-08-15 11:36] LABS: Glucose Point of Care 212 mg/dl (65-105)
[2022-08-15] MEDS: INSULIN ASPART (*BKC) 100 UNITS/ML SUB-Q (12:17)
--- NOTE | 2022-08-15 12:21 | PM.IMPN ---
Progress Note: A&P Assessment and Plan (1) Syncope: Code(s): R55 - Syncope and collapse Status: Acute Assessment and Plan: Monitor (2) Exposure to natural gas: Code(s): Z77.29 - Contact with and (suspected) exposure to other hazardous substances Status: Acute Assessment and Plan: The patient stated that he has been feeling sleepy or than normal and having headaches. The patient stated that he believes he smelled the natural gas. He stated that ameron came out there and determined that there was a gas leak. (3) Anxiety: Code(s): F41.9 - Anxiety disorder, unspecified Status: Acute Assessment and Plan: Continue with Celexa (4) History of seizures: Code(s): Z87.898 - Personal history of other specified conditions Status: Acute Assessment and Plan: The patient is on Keppra. The patient stated he has not had a seizure in a long time. (5) Acute hyponatremia: Code(s): E87.1 - Hypo-osmolality and hyponatremia Status: Acute Assessment and Plan: I did consult Nephrology for the hyponatremia. The patient has not been on any diuretics. The patient is on an SSRI. Check urine electrolytes and osmolality. Continue with IV fluids and check BMP every 4 hours. Check thyroid levels Hold his lisinopril as it may cause SI ADH (6) Acute hypokalemia: Code(s): E87.6 - Hypokalemia Status: Acute Assessment and Plan: Patient had potassium replaced orally and his potassium is now within normal limits. (7) Fracture of orbital floor: Code(s): S02.30XA - Fracture of orbital floor, unspecified side, initial encounter for closed fracture Status: Acute Assessment and Plan: The patient is able to control extraocular movement. (8) Diabetes: Code(s): E11.9 - Type 2 diabetes mellitus without complications Status: Acute Assessment and Plan: Accu-Cheks AC and HS Check A1c The patient had an insulin pump which he took off. Sliding scale insulin Continue with Jardiance Hold metformin (9) Hypercholesterolemia: Code(s): E78.00 - Pure hypercholesterolemia, unspecified Status: Acute Assessment and Plan: Continue with pravastatin Subjective Date/time seen: 08/15/22 12:21 No new complaints Exam Const: General: cooperative, healthy appearing, comfortable, no acute distress, well developed, alert, awake, Physically active, average body habitus and well nourished Nutritional Appearance: average body habitus and well nourished Orientation/consciousness: oriented to person, oriented to place, oriented to time and patient oriented x3 Limitations: no limitations HENMT: Head: normal to inspection, No palpable skull fracture present, normocephalic and atraumatic Ears: hearing grossly normal bilaterally and external ears normal Face/Nose/Sinus: Normal external nose present and Normal nares present Eyes: General: appearance normal, both eyes and all related structures Alignment and Position: alignment normal Periorbital: periorbital findings normal Eyelids: eyelids normal Sclera: sclerae normal Pupils: Equal, round and reactive pupils present EOM: EOMs intact bilaterally Neck: Neck: normal visual inspection, full ROM, no lymphadenopathy, trachea midline and supple Chest: Chest palpation & inspection: normal inspection of the chest Resp: Effort & Inspection: normal respiratory effort Auscultation: clear to auscultation bilaterally Cardio: Palpation: normal PMI Rate: bradycardic Rhythm: regular rhythm Heart sounds: S1 normal heart sound present and S2 normal heart sound present Peripheral pulses: Peripheral pulses 2+ throughout GI: Inspection: normal to inspection Auscultation: normal bowel sounds Rectal Exam: deferred Back/Spine/Pelvis: Cervical Spine: cervical ROM normal Thoracic/Lumbar Spine: thoracic and lumbar spine normal to inspection Pelvis: no pain with anterior-posteri
--- NOTE | 2022-08-15 14:30 | PM.CNNEP ---
Assessment and Plan Assessment and plan (1) Acute hyponatremia: Code(s): E87.1 - Hypo-osmolality and hyponatremia Status: Acute Assessment and Plan: acute no previous history of this he reports that he usually has issues with hypernatremia and hyperkalemia (he showed me old labs on his phone) risk factors: SSRI use (celexa) prerenal factors(?) carbon monoxide exposure (?) recent bowel prep for colonoscopy given his trend of sodiums, I am concerned about overcorrection check STAT sodium level now and stop IVFs may need D5W and/or DDAVP follow trend of sodium level (2) Acute hypokalemia: Code(s): E87.6 - Hypokalemia Status: Acute Assessment and Plan: resolved with supplementation follow trend of K+ (3) Syncope: Code(s): R55 - Syncope and collapse Status: Acute Assessment and Plan: related to hyponatremia (?) holding BP medications follow telemetry supportive therapy (4) Diabetes: Code(s): E11.9 - Type 2 diabetes mellitus without complications Status: Acute Assessment and Plan: follow accuchecks glycemic control per hospitalists History of Present Illness Reason for Consult Consult date: 08/15/22 Reason for consult: hyponatremia Chief Complaint Chief complaint: hyponatremia/hypokalemia/syncope History of Present Illness Narrative: The patient is a 67-year-old male with a past medical history as outlined below who initially presented to [facility] Emergency room due to chest pain. the chest pain was localized to hit the left side of his chest and apparently lasted for an hour before he decided to seek medical attention. The chest pain seem to correlate with a gas leak and his home that was confirmed by the [employer]. Associated symptoms include headaches as well as dizziness and apparently, he also had a fall at home thought to be related to the a for mentioned gas leak and dizziness. He presented to the emergency room for further assessment Workup and evaluation in the emergency room demonstrated the patient to be in no acute distress but routine blood tests were significant for profound hyponatremia with a sodium level of 113 with a subsequent repeat testing of 112. he was also hypokalemic but responded to potassium supplementation. He was started on aggressive IV fluid resuscitation given the hyponatremia and was subsequently admitted to the hospital for further evaluation and therapy. Renal consultation was requested due to his severe and profound hyponatremia. From review of his records, he does not have any issues or history with regard to hyponatremia and from review of his labs that he was able to access via his phone, he actually has problems more consistent with hypernatremia and hyperkalemia. Were concern is the fact that in less than 24 hr, his sodium level has gone from 112 to 120 in less than 24 hr. I do not have a repeat sodium level back at since his sodium level of 120 which was earlier this morning. I am concerned that he is already overcorrected and may need D5W and/or DDAVP to slow down this correction if not undo it. However, in spite of the suspected over-correction, he does not appear to have any type of neurologic sequela a to this phenomenon however, is difficult to say if the hyponatremia was playing a role with regard to his presumed syncopal episode and or fall at home although as already mentioned, he did have a gas leak in his home which could have been also partly responsible. Currently, at the time of my visit, he appears to be in no acute distress. Review of Systems Review of Systems: As per HPI. [facility] Past Medical History Medical History (Updated 08/15/22 @ 01:06 by Jordyn Gallagher NP) Anxiety Diabetes History of left heart catheterization History of seizures Hypercholesterolemia Hypertension Lipoma Surgical History Surgical History (Updated
[2022-08-15 16:15] LABS: Glucose Point of Care 145 mg/dl (65-105)
[2022-08-15 16:54] LABS: Anion Gap 8 mmol/L (8-16); Blood Urea Nitrogen 14 mg/dL (9-20); Calcium 8.6 mg/dL (8.4-10.2); Carbon Dioxide 30 mmol/L (22-30); Chloride 87 mmol/L (98-107); Estimated CRCL calculation 79 ml/min; Estimated Glomerular Filt Rate > 60; Glucose 137 mg/dL (65-110); Potassium 4.2 mmol/L (3.4-5.0); Sodium 125 mmol/L (137-145)
[2022-08-15] MEDS: DEXTROSE 5% IN WATER 500 ML 250 ML IVPB (18:41)
[2022-08-15] MEDS: DESMOPRESSIN ACETATE 4 MCG/ML AMP 1 MCG SUB-Q (18:42)
[2022-08-15] MEDS: HOME MEDICATION 1 EACH XX (18:49)
[2022-08-15] MEDS: ASPIRIN 81 MG CHEWABLE TABLET PO (21:26)
[2022-08-15 22:20] LABS: Glucose Point of Care 91 mg/dl (65-105)
[2022-08-15 22:41] LABS: Sodium 123 mmol/L (137-145)
[2022-08-16] VITALS (12 sets, daily range): BP systolic 117–175; BP diastolic 61–88; PULSE 55–66; RESP 16–20; TEMP 36–36.7; O2SAT 98–100
[2022-08-16] MEDS: HOME MEDICATION 1 EACH XX (05:26)
[2022-08-16 05:40] LABS: Glucose Point of Care 88 mg/dl (65-105)
[2022-08-16 07:09] LABS: Anion Gap 7 mmol/L (8-16); Blood Urea Nitrogen 11 mg/dL (9-20); Carbon Dioxide 31 mmol/L (22-30); Chloride 84 mmol/L (98-107); Estimated CRCL calculation 79 ml/min; Estimated Glomerular Filt Rate > 60; Glucose 88 mg/dL (65-110); Potassium 3.4 mmol/L (3.4-5.0); Sodium 122 mmol/L (137-145)
[2022-08-16] MEDS: CLOPIDOGREL BISULFATE 75 MG TABLET PO (08:32)
[2022-08-16] MEDS: PRAVASTATIN SODIUM 20 MG TABLET 80 MG PO (08:33)
[2022-08-16] MEDS: EMPAGLIFLOZIN 25 MG TABLET PO (08:33)
[2022-08-16] MEDS: carvediloL 12.5 MG TABLET PO (08:33)
[2022-08-16] MEDS: CITALOPRAM HYDROBROMIDE 20 MG TABLET PO (08:33)
[2022-08-16] MEDS: EZETIMIBE 10 MG TABLET PO (08:33)
[2022-08-16] MEDS: levETIRAcetam 250 MG TABLET 750 MG PO ×2 (08:33→22:50)
[2022-08-16] MEDS: DEXTROSE 5% IN WATER 500 ML 250 ML IV CONT (09:23)
--- NOTE | 2022-08-16 11:11 | PM.IMPN ---
Progress Note: A&P Assessment and Plan (1) Syncope: Code(s): R55 - Syncope and collapse Status: Acute Assessment and Plan: Monitor (2) Exposure to natural gas: Code(s): Z77.29 - Contact with and (suspected) exposure to other hazardous substances Status: Acute Assessment and Plan: No ongoing issues (3) Anxiety: Code(s): F41.9 - Anxiety disorder, unspecified Status: Acute Assessment and Plan: Continue with Celexa (4) History of seizures: Code(s): Z87.898 - Personal history of other specified conditions Status: Acute Assessment and Plan: The patient is on Keppra. The patient stated he has not had a seizure in a long time. (5) Acute hyponatremia: Code(s): E87.1 - Hypo-osmolality and hyponatremia Status: Acute Assessment and Plan: I did consult Nephrology for the hyponatremia. The patient has not been on any diuretics. The patient is on an SSRI. Check urine electrolytes and osmolality. Continue with IV fluids and check BMP every 4 hours. Check thyroid levels Hold his lisinopril as it may cause SI ADH (6) Acute hypokalemia: Code(s): E87.6 - Hypokalemia Status: Acute Assessment and Plan: Patient had potassium replaced orally and his potassium is now within normal limits. (7) Fracture of orbital floor: Code(s): S02.30XA - Fracture of orbital floor, unspecified side, initial encounter for closed fracture Status: Acute Assessment and Plan: The patient is able to control extraocular movement. (8) Diabetes: Code(s): E11.9 - Type 2 diabetes mellitus without complications Status: Acute Assessment and Plan: Accu-Cheks AC and HS Check A1c The patient had an insulin pump which he took off. Sliding scale insulin Continue with Jardiance Hold metformin (9) Hypercholesterolemia: Code(s): E78.00 - Pure hypercholesterolemia, unspecified Status: Acute Assessment and Plan: Continue with pravastatin Subjective Date/time seen: 08/16/22 11:11 No new complaints Exam Const: General: cooperative, healthy appearing, comfortable, no acute distress, well developed, alert, awake, Physically active, average body habitus and well nourished Nutritional Appearance: average body habitus and well nourished Orientation/consciousness: oriented to person, oriented to place, oriented to time and patient oriented x3 Limitations: no limitations HENMT: Head: normal to inspection, No palpable skull fracture present, normocephalic and atraumatic Ears: hearing grossly normal bilaterally and external ears normal Face/Nose/Sinus: Normal external nose present and Normal nares present Eyes: General: appearance normal, both eyes and all related structures Alignment and Position: alignment normal Periorbital: periorbital findings normal Eyelids: eyelids normal Sclera: sclerae normal Pupils: Equal, round and reactive pupils present EOM: EOMs intact bilaterally Neck: Neck: normal visual inspection, full ROM, no lymphadenopathy, trachea midline and supple Chest: Chest palpation & inspection: normal inspection of the chest Resp: Effort & Inspection: normal respiratory effort Auscultation: clear to auscultation bilaterally Cardio: Palpation: normal PMI Rate: bradycardic Rhythm: regular rhythm Heart sounds: S1 normal heart sound present and S2 normal heart sound present Peripheral pulses: Peripheral pulses 2+ throughout GI: Inspection: normal to inspection Auscultation: normal bowel sounds Rectal Exam: deferred Back/Spine/Pelvis: Cervical Spine: cervical ROM normal Thoracic/Lumbar Spine: thoracic and lumbar spine normal to inspection Pelvis: no pain with anterior-posterior compression Skin: General skin exam: normal color Lesions: no lesions Rashes: no rashes Trauma: no lacerations or abrasions Wounds: no wounds Hair: normal Nails: normal Neuro: General: oriented to pers
[2022-08-16 11:33] LABS: Glucose Point of Care 251 mg/dl (65-105)
--- NOTE | 2022-08-16 12:13 | PM.PNNEP ---
Progress Note: A&P Assessment and Plan (1) Acute hyponatremia: Code(s): E87.1 - Hypo-osmolality and hyponatremia Status: Acute Assessment and Plan: acute no previous history of this he reports that he usually has issues with hypernatremia and hyperkalemia (he showed me old labs on his phone) risk factors: SSRI use (celexa) prerenal factors(?) carbon monoxide exposure (?) recent bowel prep for colonoscopy (?) D5W and DDAVP overnight due to concerns for overcorrection check TSH, cortisol, SPEP, UPEP, serum/urine osmo, and urine electrolytes follow trend of sodium level (2) Acute hypokalemia: Code(s): E87.6 - Hypokalemia Status: Acute Assessment and Plan: resolved with supplementation follow trend of K+ (3) Syncope: Code(s): R55 - Syncope and collapse Status: Acute Assessment and Plan: related to hyponatremia (?) holding BP medications follow telemetry supportive therapy (4) Diabetes: Code(s): E11.9 - Type 2 diabetes mellitus without complications Status: Acute Assessment and Plan: follow accuchecks glycemic control per hospitalists Will continue to follow. Subjective Date/time seen: 08/16/22 12:13 Given DDAVP and D5W IVF yesterday evening due to concerns of over correction (113 -> 125 in less than 24 hours); repeat sodium at 10:00pm was 123 which is still concerning for overcorrection (but I was never called about this value); sodium was 122 this AM so another round of D5W IVFs given with repeat sodium pending. Exam Narrative: General: WD/WN male in NAD Heart: normal S1 and S2; no rub Lungs: clear to auscultation Abdomen: soft, nontender, nondistended, positive bowel sounds Extremities: no cyanosis or clubbing; no edema Skin: warm and dry Objective Data Vital Signs Vital Signs: Vital Signs Temp Pulse Resp BP Pulse Ox O2 Del Method 08/16/22 10:36 58 L 08/16/22 08:00 65 20 100 Room Air 08/16/22 08:00 65 08/16/22 08:45 65 20 117/66 100 08/16/22 08:45 62 20 145/72 H 100 08/16/22 08:00 96.8 F L 56 L 20 156/68 H 100 08/16/22 08:33 56 L 08/16/22 04:00 55 L 08/16/22 05:41 97.4 F L 56 L 16 144/70 H 98 08/16/22 00:00 58 L 08/15/22 20:00 Room Air 08/15/22 20:00 67 08/15/22 20:55 106/65 08/15/22 20:50 148/76 H 08/15/22 22:42 97.5 F L 84 16 100 08/15/22 20:45 146/75 H 08/15/22 21:26 74 08/15/22 16:00 78 08/15/22 14:00 96.9 F L 62 18 160/78 H 100 Intake/Output Intake/Output: Intake & Output 08/13/22 08/14/22 08/15/22 08/16/22 23:59 23:59 23:59 23:59 Intake Total 4470 480 Output Total 6850 1600 Balance -0500 -1120 Meds/Results Medications: Active Medications Generic Name Dose Route Start Last Admin Trade Name Freq PRN Reason Stop Dose Admin Aspirin 81 mg 08/15/22 21:00 08/15/22 21:26 Aspirin 81 Mg Chewable Tablet PO 81 mg HS MARV Administration Carvedilol 12.5 mg 08/15/22 09:00 08/16/22 08:33 Carvedilol 12.5 Mg Tablet PO 12.5 mg Q12HR MARV Administration Citalopram Hydrobromide 20 mg 08/15/22 09:00 08/16/22 08:33 Citalopram Hydrobromide 20 Mg Tablet PO 20 mg DAILY MARV Administration Clopidogrel Bisulfate 75 mg 08/15/22 09:00 08/16/22 08:32 Clopidogrel Bisulfate 75 Mg Tablet PO 75 mg DAILY MARV Administration Dextrose 12.5 gm 08/15/22 00:46 Dextrose 50% 25 Gm/50 Ml Syringe IV PUSH PRN PRN Hypoglycemia Protocol Ezetimibe 10 mg 08/15/22 09:00 08/16/22 08:33 Ezetimibe 10 Mg Tablet PO 10 mg DAILY MARV Administration Empagliflozin 25 mg 08/15/22 09:00 08/16/22 08:33 Empagliflozin 25 Mg Tablet PO 25 mg DAILY MARV Administration Glucagon 1 mg 08/15/22 00:46 Glucagon For Inj 1 Mg Vial IM PRN PRN Hypoglycemia Protocol Glucose 1
--- NOTE | 2022-08-16 12:13 | P.PNNP_ITS ---
Progress Note: A&P Assessment and Plan (1) Acute hyponatremia: Code(s): E87.1 - Hypo-osmolality and hyponatremia Status: Acute Assessment and Plan: * acute * no previous history of this * he reports that he usually has issues with hypernatremia and hyperkalemia (he showed me old labs on his phone) * risk factors: * SSRI use (celexa) * prerenal factors(?) * carbon monoxide exposure (?) * recent bowel prep for colonoscopy (?) * D5W and DDAVP overnight due to concerns for overcorrection * check TSH, cortisol, SPEP, UPEP, serum/urine osmo, and urine electrolytes * follow trend of sodium level (2) Acute hypokalemia: Code(s): E87.6 - Hypokalemia Status: Acute Assessment and Plan: * resolved with supplementation * follow trend of K+ (3) Syncope: Code(s): R55 - Syncope and collapse Status: Acute Assessment and Plan: * related to hyponatremia (?) * holding BP medications * follow telemetry * supportive therapy (4) Diabetes: Code(s): E11.9 - Type 2 diabetes mellitus without complications Status: Acute Assessment and Plan: * follow accuchecks * glycemic control per hospitalists Will continue to follow. Subjective Date/time seen: 08/16/22 12:13 Given DDAVP and D5W IVF yesterday evening due to concerns of over correction (113 -> 125 in less than 24 hours); repeat sodium at 10:00pm was 123 which is still concerning for overcorrection (but I was never called about this value); sodium was 122 this AM so another round of D5W IVFs given with repeat sodium pending. Exam Narrative: General: WD/WN male in NAD Heart: normal S1 and S2; no rub Lungs: clear to auscultation Abdomen: soft, nontender, nondistended, positive bowel sounds Extremities: no cyanosis or clubbing; no edema Skin: warm and dry Objective Data Vital Signs Vital Signs: Vital Signs Temp Pulse Resp BP Pulse Ox O2 Del Method 08/16/22 10:36 58 L 08/16/22 08:00 65 20 100 Room Air 08/16/22 08:00 65 08/16/22 08:45 65 20 117/66 100 08/16/22 08:45 62 20 145/72 H 100 03/09/23 08:00 96.8 F L 56 L 20 156/68 H 100 08/16/22 08:33 56 L 08/16/22 04:00 55 L 08/16/22 05:41 97.4 F L 56 L 16 144/70 H 98 08/16/22 00:00 58 L 08/15/22 20:00 Room Air 08/15/22 20:00 67 08/15/22 20:55 106/65 08/15/22 20:50 148/76 H 08/15/22 22:42 97.5 F L 84 16 100 08/15/22 20:45 146/75 H 08/15/22 21:26 74 08/15/22 16:00 78 08/15/22 14:00 96.9 F L 62 18 160/78 H 100 Intake/Output Intake/Output: Intake & Output 08/13/22 08/14/22 08/15/22 08/16/22 23:59 23:59 23:59 23:59 Intake Total 4470 480 Output Total 6850 1600 Balance -1740 -1120 Meds/Results Medications: Active Medications Generic Name Dose Route Start Last Admin Trade Name Tuq PRN Reason Stop Dose Admin Aspirin 81 mg 08/15/22 21:00 08/15/22 21:26 Aspirin 81 Mg Chewable Tablet PO 81 mg HS MARV Administration Carvedilol 12
[2022-08-16] MEDS: SODIUM CHLORIDE 0.9% IV 1,000 ML 75 ML IV CONT (12:17)
[2022-08-16 13:17] LABS: Sodium 120 mmol/L (137-145)
[2022-08-16 16:05] LABS: Sodium 122 mmol/L (137-145)
[2022-08-16 16:40] LABS: Glucose Point of Care 80 mg/dl (65-105)
--- NOTE | 2022-08-16 19:11 | PC.NURSE ---
On 08/16/22, the [employer] C[employer] THERAPIST, Bouchra Murphy, provided care and completed [facility] documentation on this patient. I have reviewed the [employer] C[employer] THERAPIST's documentation and agree with the findings.
[2022-08-16 20:24] LABS: Sodium 118 mmol/L (137-145)
[2022-08-16] MEDS: ASPIRIN 81 MG CHEWABLE TABLET PO (22:53)
[2022-08-17] VITALS (16 sets, daily range): BP systolic 117–163; BP diastolic 74–87; PULSE 53–74; RESP 16–18; TEMP 35.8–36.6; O2SAT 97–100
[2022-08-17 01:39] LABS: Sodium 119 mmol/L (137-145)
[2022-08-17 05:27] LABS: Total Protein Urine Random 17 mg/dL; Ur Ttl Prot Creatinine Ratio 0.74 mg/mg (0-0.20)
[2022-08-17 05:28] LABS: Sodium Urine Random 32 meq/L
[2022-08-17] MEDS: HOME MEDICATION 1 EACH XX (06:11)
[2022-08-17 07:28] LABS: Anion Gap 10 mmol/L (8-16); Blood Urea Nitrogen 8 mg/dL (9-20); Carbon Dioxide 30 mmol/L (22-30); Chloride 83 mmol/L (98-107); Estimated CRCL calculation 122 ml/min; Estimated Glomerular Filt Rate > 60; Glucose 92 mg/dL (65-110); Potassium 3.1 mmol/L (3.4-5.0); Sodium 123 mmol/L (137-145)
[2022-08-17 08:08] LABS: Glucose Point of Care 96 mg/dl (65-105)
[2022-08-17 08:51] LABS: Thyroid Stimulating Hormone Reflex 0.477 uIU/mL (0.465-4.68)
[2022-08-17] MEDS: PRAVASTATIN SODIUM 20 MG TABLET 80 MG PO (09:03)
[2022-08-17] MEDS: EZETIMIBE 10 MG TABLET PO (09:03)
[2022-08-17] MEDS: levETIRAcetam 250 MG TABLET 750 MG PO ×2 (09:03→20:57)
[2022-08-17] MEDS: CLOPIDOGREL BISULFATE 75 MG TABLET PO (09:03)
[2022-08-17] MEDS: carvediloL 12.5 MG TABLET PO ×2 (09:03→20:58)
[2022-08-17] MEDS: EMPAGLIFLOZIN 25 MG TABLET PO (09:04)
[2022-08-17] MEDS: POTASSIUM CHLORIDE 20 MEQ PACKET (FOR LIQUID) 40 MEQ PO (09:04)
[2022-08-17] MEDS: CITALOPRAM HYDROBROMIDE 20 MG TABLET PO (09:04)
--- NOTE | 2022-08-17 10:54 | PM.IMPN ---
Progress Note: A&P Assessment and Plan (1) Syncope: Code(s): R55 - Syncope and collapse Status: Acute Assessment and Plan: Monitor (2) Exposure to natural gas: Code(s): Z77.29 - Contact with and (suspected) exposure to other hazardous substances Status: Acute Assessment and Plan: No ongoing issues (3) Anxiety: Code(s): F41.9 - Anxiety disorder, unspecified Status: Acute Assessment and Plan: Continue with Celexa (4) History of seizures: Code(s): Z87.898 - Personal history of other specified conditions Status: Acute Assessment and Plan: The patient is on Keppra. The patient stated he has not had a seizure in a long time. (5) Acute hyponatremia: Code(s): E87.1 - Hypo-osmolality and hyponatremia Status: Acute Assessment and Plan: I did consult Nephrology for the hyponatremia. Sodium has improved, the sodium is still low. Appreciate nephrology input. (6) Acute hypokalemia: Code(s): E87.6 - Hypokalemia Status: Acute Assessment and Plan: Patient had potassium replaced orally and his potassium is now within normal limits. (7) Fracture of orbital floor: Code(s): S02.30XA - Fracture of orbital floor, unspecified side, initial encounter for closed fracture Status: Acute Assessment and Plan: The patient is able to control extraocular movement. (8) Diabetes: Code(s): E11.9 - Type 2 diabetes mellitus without complications Status: Acute Assessment and Plan: Accu-Cheks AC and HS Check A1c The patient had an insulin pump which he took off. Sliding scale insulin Continue with Jardiance Hold metformin (9) Hypercholesterolemia: Code(s): E78.00 - Pure hypercholesterolemia, unspecified Status: Acute Assessment and Plan: Continue with pravastatin Subjective Date/time seen: 08/17/22 10:54 No new complaints Exam Const: General: cooperative, healthy appearing, comfortable, no acute distress, well developed, alert, awake, Physically active, average body habitus and well nourished Nutritional Appearance: average body habitus and well nourished Orientation/consciousness: oriented to person, oriented to place, oriented to time and patient oriented x3 Limitations: no limitations HENMT: Head: normal to inspection, No palpable skull fracture present, normocephalic and atraumatic Ears: hearing grossly normal bilaterally and external ears normal Face/Nose/Sinus: Normal external nose present and Normal nares present Eyes: General: appearance normal, both eyes and all related structures Alignment and Position: alignment normal Periorbital: periorbital findings normal Eyelids: eyelids normal Sclera: sclerae normal Pupils: Equal, round and reactive pupils present EOM: EOMs intact bilaterally Neck: Neck: normal visual inspection, full ROM, no lymphadenopathy, trachea midline and supple Chest: Chest palpation & inspection: normal inspection of the chest Resp: Effort & Inspection: normal respiratory effort Auscultation: clear to auscultation bilaterally Cardio: Palpation: normal PMI Rate: bradycardic Rhythm: regular rhythm Heart sounds: S1 normal heart sound present and S2 normal heart sound present Peripheral pulses: Peripheral pulses 2+ throughout GI: Inspection: normal to inspection Auscultation: normal bowel sounds Rectal Exam: deferred Back/Spine/Pelvis: Cervical Spine: cervical ROM normal Thoracic/Lumbar Spine: thoracic and lumbar spine normal to inspection Pelvis: no pain with anterior-posterior compression Skin: General skin exam: normal color Lesions: no lesions Rashes: no rashes Trauma: no lacerations or abrasions Wounds: no wounds Hair: normal Nails: normal Neuro: General: oriented to person, oriented to place, oriented to time and patient oriented x3 Cranial nerves: Yes Equal, round and reactive pupils present and Yes Normal hearing present
[2022-08-17 11:32] LABS: Glucose Point of Care 115 mg/dl (65-105)
--- NOTE | 2022-08-17 13:29 | P.PNNP_ITS ---
Progress Note: A&P Assessment and Plan (1) Acute hyponatremia: Code(s): E87.1 - Hypo-osmolality and hyponatremia Status: Acute Assessment and Plan: * acute * no previous history of this * he reports that he usually has issues with hypernatremia and hyperkalemia (he showed me old labs on his phone) * risk factors: * SSRI use (celexa) * prerenal factors(?) * carbon monoxide exposure (?) * recent bowel prep for colonoscopy (?) * chlorthalidone a likely culprit. * evaluation reveals: cortisol and TSH okay spe pending * sodium level is up and down around this level for the last 2 days. * will add a mild fluid restriction * he is off the chlorthalidone. (2) Acute hypokalemia: Code(s): E87.6 - Hypokalemia Status: Acute Assessment and Plan: * resolved with supplementation * follow trend of K+ (3) Syncope: Code(s): R55 - Syncope and collapse Status: Acute Assessment and Plan: * related to hyponatremia (?) * holding BP medications * follow telemetry * supportive therapy (4) Diabetes: Code(s): E11.9 - Type 2 diabetes mellitus without complications Status: Acute Assessment and Plan: * follow accuchecks * glycemic control per hospitalists Will continue to follow. Subjective Date/time seen: 08/17/22 13:29 Interval history: alert. feels okay. no cp or sob he drinks 2 gallons of water/liquids at home per day his brought a bottle of chlorthalidone that he started 1 week before admission. Exam Narrative: General: WD/WN male in NAD Heart: normal S1 and S2; no rub Lungs: clear Abdomen: soft, nontender, nondistended, positive bowel sounds Extremities: no cyanosis or clubbing; no edema Skin: no rash Objective Data Vital Signs Vital Signs: Vital Signs - 24 hr 08/16/22 13:58 08/16/22 21:48 08/16/22 20:00 Temperature 96.9 F L 98.1 F Pulse Rate 55 L 66 Respiratory Rate 20 16 Blood Pressure 121/61 175/82 H 175/82 H Pulse Oximetry 99 99 Oxygen Delivery 08/16/22 21:50 08/16/22 21:50 08/17/22 05:25 Temperature 97.8 F Pulse Rate 55 L Respiratory Rate 18 Blood Pressure 175/88 H 162/74 H 163/76 H Pulse Oximetry 100 Oxygen Delivery 08/16/22 20:00 08/16/22 20:00 08/17/22 00:00 Temperature Pulse Rate 57 L 55 L 53 L Respiratory Rate 18 Blood Pressure Pulse Oximetry 100 Oxygen Delivery Room Air 08/17/22 04:00 08/17/22 08:00 08/17/22 08:13 Temperature 96.5 F L 96.5 F L Pulse Rate 66 62 72 Respiratory Rate 16 16 Blood Pressure 157/82 H 156/87 H Pulse Oximetry 98 97 Oxygen Delivery 08/17/22 08:14 08/17/22 09:03 08/17/22 09:00 Temperature 96.5 F L Pulse Rate 72 64 Respiratory Rate 16 Blood Pressure 120/77 Pulse Oximetry 99 Oxygen Delivery Room Air 08/17/22 08:00 Temperature Pulse Rate 74 Respiratory Rate Blood Pressure Pulse Oximetry Oxygen Delivery
--- NOTE | 2022-08-17 13:29 | PM.PNNEP ---
Progress Note: A&P Assessment and Plan (1) Acute hyponatremia: Code(s): E87.1 - Hypo-osmolality and hyponatremia Status: Acute Assessment and Plan: acute no previous history of this he reports that he usually has issues with hypernatremia and hyperkalemia (he showed me old labs on his phone) risk factors: SSRI use (celexa) prerenal factors(?) carbon monoxide exposure (?) recent bowel prep for colonoscopy (?) chlorthalidone a likely culprit. evaluation reveals: cortisol and TSH okay spe pending sodium level is up and down around this level for the last 2 days. will add a mild fluid restriction he is off the chlorthalidone. (2) Acute hypokalemia: Code(s): E87.6 - Hypokalemia Status: Acute Assessment and Plan: resolved with supplementation follow trend of K+ (3) Syncope: Code(s): R55 - Syncope and collapse Status: Acute Assessment and Plan: related to hyponatremia (?) holding BP medications follow telemetry supportive therapy (4) Diabetes: Code(s): E11.9 - Type 2 diabetes mellitus without complications Status: Acute Assessment and Plan: follow accuchecks glycemic control per hospitalists Will continue to follow. Subjective Date/time seen: 08/17/22 13:29 Interval history: alert. feels okay. no cp or sob he drinks 2 gallons of water/liquids at home per day his brought a bottle of chlorthalidone that he started 1 week before admission. Exam Narrative: General: WD/WN male in NAD Heart: normal S1 and S2; no rub Lungs: clear Abdomen: soft, nontender, nondistended, positive bowel sounds Extremities: no cyanosis or clubbing; no edema Skin: no rash Objective Data Vital Signs Vital Signs: Vital Signs - 24 hr 08/16/22 13:58 08/16/22 21:48 08/16/22 20:00 Temperature 96.9 F L 98.1 F Pulse Rate 55 L 66 Respiratory Rate 20 16 Blood Pressure 121/61 175/82 H 175/82 H Pulse Oximetry 99 99 Oxygen Delivery 08/16/22 21:50 08/16/22 21:50 08/17/22 05:25 Temperature 97.8 F Pulse Rate 55 L Respiratory Rate 18 Blood Pressure 175/88 H 162/74 H 163/76 H Pulse Oximetry 100 Oxygen Delivery 08/16/22 20:00 08/16/22 20:00 08/17/22 00:00 Temperature Pulse Rate 57 L 55 L 53 L Respiratory Rate 18 Blood Pressure Pulse Oximetry 100 Oxygen Delivery Room Air 08/17/22 04:00 08/17/22 08:00 08/17/22 08:13 Temperature 96.5 F L 96.5 F L Pulse Rate 66 62 72 Respiratory Rate 16 16 Blood Pressure 157/82 H 156/87 H Pulse Oximetry 98 97 Oxygen Delivery 08/17/22 08:14 08/17/22 09:03 08/17/22 09:00 Temperature 96.5 F L Pulse Rate 72 64 Respiratory Rate 16 Blood Pressure 120/77 Pulse Oximetry 99 Oxygen Delivery Room Air 08/17/22 08:00 Temperature Pulse Rate 74 Respiratory Rate Blood Pressure Pulse Oximetry Oxygen Delivery Intake/Output Intake/Output: Intake & Output 08/14/22 08/15/22 08/16/22 08/17/22 23:59 23:59 23:59 23:59 Intake Total 4470 1990 1910 Output Total 6850 3000 4000 Balance -2380 -1010 -6940 Meds/Results Medications: Active Medications Generic Name Dose Route Start Last Admin Trade Name Freq PRN Reason Stop Dose Admin Aspirin 81 mg 08/15/22 21:00 08/16/22 22:53 Aspirin 81 Mg Chewable Tablet PO 81 mg HS MARV Administration Carvedilol 12.5 mg 08/15/22 09:00 08/17/22 09:03 Carvedilol 12.5 Mg Tablet PO 12.5 mg Q12HR MARV Administration Citalopram Hydrobromide 20 mg 08/15/22 09:00 08/17/22 09:04 Citalopram Hydrobromide 20 Mg Tablet PO 20 mg DAILY MARV Administration Clopidogrel Bisulfate 75 mg 08/15/22 09:00 08/17/22 09:03 Clopidogrel Bisulfate 75 Mg Tablet PO 75 mg DAILY MARV Administration Dextrose 12.5 gm 08/15/22 00:46 Dextrose 50% 25 Gm/50 Ml Syringe IV PUSH PRN PRN Hypoglycemia Protocol Ezetimibe 10 mg 03
[2022-08-17 15:38] LABS: Anion Gap 4 mmol/L (8-16); Blood Urea Nitrogen 13 mg/dL (9-20); Calcium 8.3 mg/dL (8.4-10.2); Carbon Dioxide 33 mmol/L (22-30); Chloride 85 mmol/L (98-107); Estimated CRCL calculation 65 ml/min; Estimated Glomerular Filt Rate > 60; Glucose 110 mg/dL (65-110); Sodium 122 mmol/L (137-145)
[2022-08-17 16:47] LABS: Glucose Point of Care 72 mg/dl (65-105)
[2022-08-17] MEDS: ASPIRIN 81 MG CHEWABLE TABLET PO (20:57)
[2022-08-17 21:30] LABS: Glucose Point of Care 106 mg/dl (65-105)
[2022-08-18] VITALS: PULSE 54
[2022-08-18 04:00] VITALS: PULSE 101
[2022-08-18 06:00] VITALS: BP 126/77; PULSE 59; RESP 16; TEMP 36.7; O2SAT 100
[2022-08-18 06:25] LABS: Anion Gap 7 mmol/L (8-16); Blood Urea Nitrogen 12 mg/dL (9-20); Calcium 8.5 mg/dL (8.4-10.2); Carbon Dioxide 32 mmol/L (22-30); Chloride 90 mmol/L (98-107); Estimated CRCL calculation 90 ml/min; Estimated Glomerular Filt Rate > 60; Glucose 99 mg/dL (65-110); Phosphorus 4.2 mg/dL (2.5-4.5); Potassium 3.7 mmol/L (3.4-5.0); Sodium 129 mmol/L (137-145)
[2022-08-18 08:00] VITALS: PULSE 54
[2022-08-18 08:06] LABS: Glucose Point of Care 99 mg/dl (65-105)
[2022-08-18 08:20] VITALS: PULSE 62
[2022-08-18] MEDS: carvediloL 12.5 MG TABLET PO (08:20)
[2022-08-18] MEDS: HOME MEDICATION 1 EACH XX (08:20)
[2022-08-18] MEDS: CITALOPRAM HYDROBROMIDE 20 MG TABLET PO (08:21)
[2022-08-18] MEDS: CLOPIDOGREL BISULFATE 75 MG TABLET PO (08:21)
[2022-08-18] MEDS: EMPAGLIFLOZIN 25 MG TABLET PO (08:21)
[2022-08-18] MEDS: EZETIMIBE 10 MG TABLET PO (08:22)
[2022-08-18] MEDS: levETIRAcetam 250 MG TABLET 750 MG PO (08:22)
[2022-08-18] MEDS: PRAVASTATIN SODIUM 20 MG TABLET 80 MG PO (08:22)
--- NOTE | 2022-08-18 11:19 | P.PNNP_ITS ---
Progress Note: A&P Assessment and Plan (1) Acute hyponatremia: Code(s): E87.1 - Hypo-osmolality and hyponatremia Status: Acute Assessment and Plan: * acute * no previous history of this * he reports that he usually has issues with hypernatremia and hyperkalemia (he showed me old labs on his phone) * risk factors: * SSRI use (celexa) * prerenal factors(?) * carbon monoxide exposure (?) * recent bowel prep for colonoscopy (?) * chlorthalidone a likely culprit. * evaluation reveals: cortisol and TSH okay spe pending * sodium level is now up to 127. * I told the patient that he should drink if thirsty not if he is not. He should limit his fluid intake to about 4-5 quarts per day. He should stay off the chlorthalidone. He should get some labs done in a few days after discharge. Discussed with Dr. Vizcaino (2) Acute hypokalemia: Code(s): E87.6 - Hypokalemia Status: Acute Assessment and Plan: * resolved (3) Syncope: Code(s): R55 - Syncope and collapse Status: Acute Assessment and Plan: * Blood pressure doing better (4) Diabetes: Code(s): E11.9 - Type 2 diabetes mellitus without complications Status: Acute Assessment and Plan: * follow accuchecks * glycemic control per hospitalists Subjective Date/time seen: 08/18/22 11:19 Interval history: alert. feels okay. no cp or sob Eager for discharge Exam Narrative: General: WD/WN male in NAD Heart: normal S1 and S2; no rub Lungs: clear bilateral Abdomen: soft, nontender, nondistended, positive bowel sounds Extremities: no cyanosis or clubbing; no edema Skin: no rash or subcu not Objective Data Vital Signs Vital Signs: Vital Signs - 24 hr 08/17/22 14:00 08/17/22 12:00 08/17/22 16:00 Temperature 96.9 F L Pulse Rate 61 55 L 56 L Respiratory Rate 16 Blood Pressure 131/75 Pulse Oximetry 98 Oxygen Delivery 08/17/22 20:58 08/17/22 21:38 08/17/22 20:00 Temperature 97 F L Pulse Rate 59 L 59 L Respiratory Rate 16 Blood Pressure 139/75 139/75 Pulse Oximetry 99 Oxygen Delivery 08/17/22 21:41 08/17/22 21:42 08/17/22 21:00 Temperature Pulse Rate 54 L Respiratory Rate Blood Pressure 135/75 117/74 Pulse Oximetry Oxygen Delivery 08/17/22 21:00 08/18/22 00:00 08/18/22 04:00 Temperature Pulse Rate 54 L 101 H Respiratory Rate Blood Pressure Pulse Oximetry Oxygen Delivery Room Air 08/18/22 06:00 08/18/22 08:20 08/18/22 08:00 Temperature 98.1 F Pulse Rate 59 L 62 Respiratory Rate 16 Blood Pressure 126/77 Pulse Oximetry 100 Oxygen Delivery Room Air 08/18/22 08:00 Temperature Pulse Rate 54 L Respiratory Rate Blood Pressure Pulse Oximetry Oxygen Delivery Intake/Output Intake/Output: Intake & Output 08/15/22 08/16/22 08/17/22 08/18/22
--- NOTE | 2022-08-18 11:19 | PM.PNNEP ---
Progress Note: A&P Assessment and Plan (1) Acute hyponatremia: Code(s): E87.1 - Hypo-osmolality and hyponatremia Status: Acute Assessment and Plan: acute no previous history of this he reports that he usually has issues with hypernatremia and hyperkalemia (he showed me old labs on his phone) risk factors: SSRI use (celexa) prerenal factors(?) carbon monoxide exposure (?) recent bowel prep for colonoscopy (?) chlorthalidone a likely culprit. evaluation reveals: cortisol and TSH okay spe pending sodium level is now up to 127. I told the patient that he should drink if thirsty not if he is not. He should limit his fluid intake to about 4-5 quarts per day. He should stay off the chlorthalidone. He should get some labs done in a few days after discharge. Discussed with Dr. Vizcaino (2) Acute hypokalemia: Code(s): E87.6 - Hypokalemia Status: Acute Assessment and Plan: resolved (3) Syncope: Code(s): R55 - Syncope and collapse Status: Acute Assessment and Plan: Blood pressure doing better (4) Diabetes: Code(s): E11.9 - Type 2 diabetes mellitus without complications Status: Acute Assessment and Plan: follow accuchecks glycemic control per hospitalists Subjective Date/time seen: 08/18/22 11:19 Interval history: alert. feels okay. no cp or sob Eager for discharge Exam Narrative: General: WD/WN male in NAD Heart: normal S1 and S2; no rub Lungs: clear bilateral Abdomen: soft, nontender, nondistended, positive bowel sounds Extremities: no cyanosis or clubbing; no edema Skin: no rash or subcu not Objective Data Vital Signs Vital Signs: Vital Signs - 24 hr 08/17/22 14:00 08/17/22 12:00 08/17/22 16:00 Temperature 96.9 F L Pulse Rate 61 55 L 56 L Respiratory Rate 16 Blood Pressure 131/75 Pulse Oximetry 98 Oxygen Delivery 08/17/22 20:58 08/17/22 21:38 08/17/22 20:00 Temperature 97 F L Pulse Rate 59 L 59 L Respiratory Rate 16 Blood Pressure 139/75 139/75 Pulse Oximetry 99 Oxygen Delivery 08/17/22 21:41 08/17/22 21:42 08/17/22 21:00 Temperature Pulse Rate 54 L Respiratory Rate Blood Pressure 135/75 117/74 Pulse Oximetry Oxygen Delivery 08/17/22 21:00 08/18/22 00:00 08/18/22 04:00 Temperature Pulse Rate 54 L 101 H Respiratory Rate Blood Pressure Pulse Oximetry Oxygen Delivery Room Air 08/18/22 06:00 08/18/22 08:20 08/18/22 08:00 Temperature 98.1 F Pulse Rate 59 L 62 Respiratory Rate 16 Blood Pressure 126/77 Pulse Oximetry 100 Oxygen Delivery Room Air 08/18/22 08:00 Temperature Pulse Rate 54 L Respiratory Rate Blood Pressure Pulse Oximetry Oxygen Delivery Intake/Output Intake/Output: Intake & Output 08/15/22 08/16/22 08/17/22 08/18/22 23:59 23:59 23:59 23:59 Intake Total 4470 1990 2390 690 Output Total 6850 3000 5800 1550 [facility] -[phone] -[id number] -3410 -860 Meds/Results Medications: Active Medications Generic Name Dose Route Start Last Admin Trade Name Freq PRN Reason Stop Dose Admin Aspirin 81 mg 08/15/22 21:00 08/17/22 20:57 Aspirin 81 Mg Chewable Tablet PO 81 mg HS MARV Administration Carvedilol 12.5 mg 08/15/22 09:00 08/18/22 08:20 Carvedilol 12.5 Mg Tablet PO 12.5 mg Q12HR MARV Administration Citalopram Hydrobromide 20 mg 08/15/22 09:00 08/18/22 08:21 Citalopram Hydrobromide 20 Mg Tablet PO 20 mg DAILY MARV Administration Clopidogrel Bisulfate 75 mg 08/15/22 09:00 08/18/22 08:21 Clopidogrel Bisulfate 75 Mg Tablet PO 75 mg DAILY MARV Administration Dextrose 12.5 gm 08/15/22 00:46 Dextrose 50% 25 Gm/50 Ml Syringe IV PUSH PRN PRN Hypoglycemia Protocol Ezetimibe 10 mg 08/15/22 09:00 08/18/22 08:22 Ezetimibe 10 Mg Tablet PO 10 mg DAILY MARV Administration Empagliflozin 25 m
[2022-08-18 11:40] LABS: Glucose Point of Care 209 mg/dl (65-105)
--- NOTE | 2022-08-18 11:52 | PM.DS ---
DS: Admitting Diagnosis Discharge Date August 18, 2022 Admitting Diagnosis Hyponatremia DS: Discharge Diagnosis Discharge Diagnosis (1) Syncope: Code(s): R55 - Syncope and collapse Status: Acute Assessment and Plan: Monitor (2) Exposure to natural gas: Code(s): Z77.29 - Contact with and (suspected) exposure to other hazardous substances Status: Acute Assessment and Plan: No ongoing issues (3) Anxiety: Code(s): F41.9 - Anxiety disorder, unspecified Status: Acute Assessment and Plan: Continue with Celexa (4) History of seizures: Code(s): Z87.898 - Personal history of other specified conditions Status: Acute Assessment and Plan: The patient is on Keppra. The patient stated he has not had a seizure in a long time. (5) Acute hyponatremia: Code(s): E87.1 - Hypo-osmolality and hyponatremia Status: Acute Assessment and Plan: I did consult Nephrology for the hyponatremia. Sodium has improved, the sodium is still low. Appreciate nephrology input. (6) Acute hypokalemia: Code(s): E87.6 - Hypokalemia Status: Acute Assessment and Plan: Patient had potassium replaced orally and his potassium is now within normal limits. (7) Fracture of orbital floor: Code(s): S02.30XA - Fracture of orbital floor, unspecified side, initial encounter for closed fracture Status: Acute Assessment and Plan: The patient is able to control extraocular movement. (8) Diabetes: Code(s): E11.9 - Type 2 diabetes mellitus without complications Status: Acute Assessment and Plan: Accu-Cheks AC and HS Check A1c The patient had an insulin pump which he took off. Sliding scale insulin Continue with Jardiance Hold metformin (9) Hypercholesterolemia: Code(s): E78.00 - Pure hypercholesterolemia, unspecified Status: Acute Assessment and Plan: Continue with pravastatin DS: Summary Hospital Course Hospital Course: 67-year-old gentleman came in with hyponatremia. Likely related to medications. Nephrology was consulted and we corrected the sodium. It has been stable over the last 12:48 p.m.. He is asymptomatic. Patient can be discharged. Follow up with Nephrology Time Spent with Patient Time attestation: Total time spent providing and/or coordinating discharge services: Exam Const: General: cooperative, healthy appearing, comfortable, no acute distress, well developed, alert, awake, Physically active, average body habitus and well nourished Nutritional Appearance: average body habitus and well nourished Orientation/consciousness: oriented to person, oriented to place, oriented to time and patient oriented x3 Limitations: no limitations HENMT: Head: normal to inspection, No palpable skull fracture present, normocephalic and atraumatic Ears: hearing grossly normal bilaterally and external ears normal Face/Nose/Sinus: Normal external nose present and Normal nares present Eyes: General: appearance normal, both eyes and all related structures Alignment and Position: alignment normal Periorbital: periorbital findings normal Eyelids: eyelids normal Sclera: sclerae normal Pupils: Equal, round and reactive pupils present EOM: EOMs intact bilaterally Neck: Neck: normal visual inspection, full ROM, no lymphadenopathy, trachea midline and supple Chest: Chest palpation & inspection: normal inspection of the chest Resp: Effort & Inspection: normal respiratory effort Auscultation: clear to auscultation bilaterally Cardio: Palpation: normal PMI Rate: bradycardic Rhythm: regular rhythm Heart sounds: S1 normal heart sound present and S2 normal heart sound present Peripheral pulses: Peripheral pulses 2+ throughout GI: Inspection: normal to inspection Auscultation: normal bowel sounds Rectal Exam: deferred Back/Spine/Pelvis: Cervical Spine: cervical ROM normal Thoracic/Lumbar Spine:
[2022-08-18 12:00] VITALS: PULSE 56
[2022-08-18 21:04] LABS: Osmolality, Urine 248 mOsm/kg (50-1200)
[2022-08-21 14:52] LABS: Albumin 3.5 g/dL (3.8-4.8); Alpha 1 Globulin 0.3 g/dL (0.2-0.3); Alpha 2 Globulin 0.6 g/dL (0.5-0.9); Beta 1 Globulin 0.3 g/dL (0.4-0.6); Gamma Globulin 0.7 g/dL (0.8-1.7); Protein, Total 5.8 g/dL (6.1-8.1)
[2022-08-21 20:37] LABS: Osmolality, Urine 252 mOsm/kg (50-1200)
[2022-08-21 21:58] LABS: Kappa\\Lambda Light Chains 1.86 (0.26-1.65); Lambda Light Chain 15.2 mg/L (5.7-26.3)
[2022-08-22 15:44] LABS: Chloride Rand Ur 41 mmol/L (32-290); Chloride/Creatinine Rand Ur 171 (23-275); Creatinine Random Urine 24 mg/dL (20-320)
[2022-08-22 20:52] LABS: Creatinine, Random Urine 25 mg/dL (20-320); Total Protein/Creatinine Ratio 240 mg/g creat (25-148)
== END 2022-08-18 13:10 | disposition home or self-care (01) | DRG 641 ==
LOC: ANHED 18:07 → ANH3MEDSUR 20:24
PROVIDERS: Internal Medicine Nephrology; Nurse Practitioner; Admitting Provider Family Medicine; Emergency Provider Emergency Medicine; Visit Provider Chiropractor
DX: E87.1 Hypo-osmolality and hyponatremia (principal); S02.32XA Fracture of orbital floor, left side, initial encounter for closed fracture; R55 Syncope and collapse; Z77.29 Contact with and (suspected) exposure to other hazardous substances; F41.9 Anxiety disorder, unspecified; E87.6 Hypokalemia; E11.9 Type 2 diabetes mellitus without complications; E78.00 Pure hypercholesterolemia, unspecified; T50.995A Adverse effect of other drugs, medicaments and biological substances, initial encounter; W18.39XA Other fall on same level, initial encounter; Z87.898 Personal history of other specified conditions; Z95.5 Presence of coronary angioplasty implant and graft; Z87.891 Personal history of nicotine dependence
CPT/HCPCS: 36415; 36600; 70450; 70486; 71046; 80048; 80053; 81050; 82040; 82436; 82533; 82570; 82805; 82948; 83036; 83605; 83690; 83735; 83883; 83930; 83935; 84100; 84133; 84155; 84156; 84165; 84166; 84295; 84300; 84443; 84484; 85025; 85610; 85730; 93005; 96361; 99285; A9270; G0378; J1815; J2597; J7030; J7060

== ENCOUNTER 2022-09-20 20:53 | Emergency (ER) | payer MEDICARE, SELFPAY ==
--- NOTE | ~2022-09-20 | XR_ITS ---
Portable chest x-ray Comparison: 08/14/2022 Clinical History: Tube placement Findings: Endotracheal tube and NG tube are in satisfactory positions. Extensive right basilar conso lidation is present. Probable small left pleural effusion. Cardiomediastinal silhouette is stable. B ones and soft tissues are unremarkable. Impression: Right basilar pneumonia. Small left pleural effusion. Support tubes, as above. Reviewed, dictated and finalized at location . Impression: Right basilar pneumonia. Small left pleural effusion. Support tubes, as above.
--- NOTE | ~2022-09-20 | XR_ITS ---
Portable chest x-ray Comparison: 09/20/2022 11:54 PM Clinical History: Tube placement Findings: Endotracheal tube and NG tube are in satisfactory distance. Right basilar pneumonia is pre sent, likely right middle lobe. Small left pleural effusion present. Cardiomediastinal silhouette is stable. Bones and soft tissues are unremarkable. Impression: Right middle lobe pneumonia. Support tubes in place, as above. Small left pleural effusion. Reviewed, dictated and finalized at location . Impression: Right middle lobe pneumonia. Support tubes in place, as above. Small left pleural effusion.
--- NOTE | ~2022-09-20 | XR_ITS ---
Supine portable view of the abdomen Clinical history: NG tube placement Findings: NG tube in satisfactory position. Bowel gas pattern is nonspecific. No evidence for obstruc tion or free air. No abnormal mass lesion or calcification is seen. Osseous structures are intact. Ri ght middle lobe pneumonia noted. Impression: NG tube in satisfactory position. Right middle lobe pneumonia. Reviewed, dictated and finalized at [facility]. Impression: NG tube in satisfactory position. Right middle lobe pneumonia.
--- NOTE | ~2022-09-20 | CT_ITS ---
EXAMINATION: CT brain wo con INDICATION: Transient alteration of awareness COMPARISON: 08/14/2022 TECHNIQUE: Standard unenhanced head CT. The dose-length product (DLP) was 681.00 mGy-cm. The mA was a djusted according to patient size. Iterative reconstruction technique was employed. FINDINGS: There is no intracranial hemorrhage, acute infarction, or abnormal mass lesion. The ventric les are normal. There is no abnormal mass effect or midline shift. The king-white matter differentiat ion is normal. The basal cisterns are patent. The orbits are normal. Changes in the globes are likely from ocular lens surgery. The paranasal sinuses, mastoids and calvarium are normal. IMPRESSION: 1. No acute intracranial abnormality. Reviewed, dictated and finalized at location F.
--- NOTE | 2022-09-20 21:03 | ECG_ITS ---
Measurements Intervals [place] Rate: 92 P: 28 AK: 167 QRS: -50 QRSD: 128 T: 58 QT: 363 QTc: 450 Interpretive Statements SINUS RHYTHM BASELINE ARTIFACT POSSIBLE LEFT ATRIAL ENLARGEMENT LEFT ANTERIOR FASCICULAR BLOCK ANTEROSEPTAL MYOCARDIAL INFARCTION , OF INDETERMINATE AGE ABNORMAL ECG COMPARED TO ECG 08/14/2022 16:42:19 HEART RATE HAS INCREASED LEFT ANTERIOR FASCICULAR BLOCK NOW PRESENT Electronically Signed On 09-21-2022 16:39:27 CDT by Naseem Wayne M.D.
--- NOTE | 2022-09-20 21:04 | ED.GENADULT ---
HPI - General Adult General Chief complaint: Seizure Stated complaint: ?seizure Time Seen by Provider: 09/20/22 20:56 History of Present Illness HPI narrative: Patient is a 67-year-old gentleman who presents the emergency department with chief complaint of altered mental status. Patient was found by EMS pulled over on the side of the road and was minimally responsive. Patient was given Narcan in the field with minimal improvement and was found to have a blood sugar in the 60s. The patient was given D10 and his insulin pump was disconnected by EMS. Patient's blood sugar came up in the 160s the medics reported that they had noticed he had a medical alert tag that did show history of seizures the patient did have movement of his eyes at that point that was pezz-ja-spyl and rhythmic but no active physical seizing in the field by EMS. The family was able to pull up the patient's Dexcom information that showed that he had been with a blood sugar in the 50s for multiple hours throughout the day per police the patient had been sitting on the side of the road in his vehicle for several hours and had actually vomited in the vehicle. Related Data Home Medications Medication Instructions Recorded Confirmed citalopram 20 mg tablet 20 mg PO DAILY 07/28/19 08/14/22 clopidogrel 75 mg tablet 75 mg PO DAILY 07/28/19 08/14/22 ezetimibe 10 mg tablet 10 mg PO DAILY 07/28/19 08/14/22 insulin lispro 100 unit/mL See Rx Instructions .Route .COMPLEX 07/28/19 08/14/22 subcutaneous solution (Humalog U-100 Insulin) levetiracetam 750 mg tablet 750 mg PO BID 07/28/19 08/14/22 metformin 500 mg tablet,extended 1,000 mg PO HS 07/28/19 08/14/22 release 24 hr pravastatin 80 mg tablet 80 mg PO DAILY 07/28/19 08/14/22 carvedilol 12.5 mg tablet 12.5 mg PO BID 09/29/20 08/14/22 empagliflozin 25 mg tablet 25 mg PO BID 09/29/20 08/14/22 (Jardiance) nifedipine 90 mg tablet,extended 90 mg PO DAILY 09/29/20 08/14/22 release 24 hr aspirin 81 mg chewable tablet 81 mg PO HS 03/07/23 03/07/23 Allergies Allergy/AdvReac Type Severity Reaction Status Date / Time No Known Allergies Allergy Verified 08/14/22 21:16 Review of Systems Review of Systems: A 10 system review of systems was completed on the patient and is negative except for what is stated in the HPI. Nursing and ancillary documentation was reviewed. [facility] Past Medical History Medical History Anxiety Diabetes History of left heart catheterization History of seizures Hypercholesterolemia Hypertension Lipoma Surgical History Surgical History H/O heart artery stent X3 History of surgical removal of lesion Multiple lipomas removed from back Family History Family History Father Cancer Mother Cancer Social History Social History Social History: The patient is and lives with his . He lives in a rental property. He has 4 children. 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 He is a former smoker. His is the durable power civil attorney for healthcare. Code status full code Smoking status: Former smoker Tobacco type: cigarettes Second hand tobacco smoke exposure: No Smoking end date: 06/10/85 Alcohol intake: former Alcohol use details: Quit in 1988 Substance use: never Substance use type: does not use Lack of Transportation: No Lack of Food: Never True Current Housing: I Have Housing Concerned About Future Housing: No Difficulty Paying Gas/Electric Bills: No Difficulty Paying for Meds: No Currently Unemployed: No Education: Associate Degree Difficulty w/ Childcare or Family Care: No Living arrangements: with family Occupation/Education: retired Gender identity (if
[2022-09-20] MEDS: LORazepam INJ (*CRX) 2 MG/ML VIAL IV PUSH (21:05)
[2022-09-20] MEDS: levETIRAcetam 500MG/NACL 100ML 500 MG/100 ML BAG 400 MG IVPB (21:10)
[2022-09-20] MEDS: SODIUM CHLORIDE 0.9% IV 1,000 ML 999 ML IV CONT (21:16)
[2022-09-20 21:19] VITALS: BP 196/93; PULSE 95; RESP 24; O2SAT 100
[2022-09-20 21:24] VITALS: O2SAT 99
[2022-09-20 21:31] LABS: Basophils Percent Auto 0.1 % (0.2-1.2); Hematocrit 52.8 % (42.0-52.0); Hemoglobin 16.9 g/dL (14.0-18.0); Immature Granulocyte Absolute 0.04 K/mm3 (0.00-0.031); Immature Granulocyte Percent A 0.3 % (0-0.5); Lymphocytes Absolute Auto 0.42 K/mm3 (0.9-3.2); Lymphocytes Percent Auto 3.4 % (18.3-44.2); Mean Corpuscular Hemoglobin 30.1 pg (26-34); Mean Platelet Volume 9.8 fl (7.4-10.4); Monocytes Absolute Auto 0.6 K/mm3 (0.1-0.6); Monocytes Percent Auto 5.2 % (2.6-8.5); Neutrophils Absolute Auto 11.1 K/mm3 (1.3-6.7); Platelet Count Result 162 k/mm3 (150-375); Red Blood Count 5.62 M/mm3 (4.6-6.20); Red Cell Distribution Width 13.6 % (11.5-14.5); White Blood Count 12.3 K/mm3 (4.5-10.0)
[2022-09-20 21:41] LABS: INR 1.1; Prothrombin Time 13.5 Seconds (11.1-14.7)
[2022-09-20 21:42] LABS: Alanine Aminotransferase 22 U/L (6-50); Albumin Level 4.6 g/dL (3.5-5.1); Alkaline Phosphatase 84 U/L (38-126); Anion Gap 19 mmol/L (8-16); Aspartate Amino Transferase 33 U/L (17-59); Bilirubin,Total 1.2 mg/dL (0.2-1.3); Blood Urea Nitrogen 16 mg/dL (9-20); Calcium 8.3 mg/dL (8.4-10.2); Carbon Dioxide 20 mmol/L (22-30); Chloride 98 mmol/L (98-107); Estimated CRCL calculation 90 ml/min; Estimated Glomerular Filt Rate > 60; Glucose 178 mg/dL (65-110); Partial Thromboplastin Time 28.3 SECONDS (22.3-36.8); Potassium 3.6 mmol/L (3.4-5.0); Sodium 137 mmol/L (137-145)
[2022-09-20 21:48] LABS: Lactic Acid Reflex 7.9 mmol/L (0.7-2.0)
[2022-09-20 22:08] VITALS: BP 172/77; PULSE 92; RESP 22; O2SAT 95
--- NOTE | 2022-09-20 22:27 | PC.NURSE ---
nasal trumpet placed in left nare due to snoring respirations. pt remains GCS 3. Dr. Dobbins aware
[2022-09-20 23:04] VITALS: BP 173/73; PULSE 94; RESP 26; O2SAT 90
[2022-09-21] VITALS (12 sets, daily range): BP systolic 56–135; BP diastolic 42–68; PULSE 82–96; RESP 14–25; TEMP 37.9–38.3; O2SAT 88–100
[2022-09-21] MEDS: SODIUM CHLORIDE 0.9% IV 1,000 ML 999 ML IV CONT (00:21)
--- NOTE | 2022-09-21 00:23 | PC.NURSE ---
20 mg etomidate administered at 2328. 100 mg Succinylcholine administered at 2328. Pt intubated with 7.[address] Brand at 2333. 23 cm at the lip. Positive color change.
[2022-09-21 00:28] LABS: Reflex Lactic Acid Yes or No Add Lactic
[2022-09-21 00:37] LABS: PCO2 ABG 63.4 mmHg (35.0-45.0); PO2 ABG 51.5 mmHg (80.0-100.0); pH ABG 7.209 (7.350-7.450)
[2022-09-21 00:38] LABS: Base Excess ABG -4.6 mEq/l (+/-2.0); HCO3 ABG 24.7 mEq/l (22.0-26.0); Total Hemoglobin 16.4 g/dL (12.0-18.0)
[2022-09-21 00:39] LABS: Carboxyhemoglobin 0.6 % THb (0-2.0); Methemoglobin ABG 0.8 %THb (0-1.5); Oxygen Content ABG 17.7 %vol (16.0-22.0)
[2022-09-21 00:40] LABS: Device AMBU BAG; Fractional Inspired Oxygen 100 %; Modified Allen's Test Unable to perform; PO2 FiO2 Ratio Arterial Blood 0.51 %; Reduced Hemoglobin 21.6 %THb (0-5.0); Site Drawn LEFT RADIAL
[2022-09-21 00:41] LABS: Alveolar/Arterial O2 Gradient 598.1 mmHg
[2022-09-21 00:49] LABS: Triglycerides 76 mg/dL (<150)
--- NOTE | 2022-09-21 00:49 | PC.NURSE ---
Pt not properly oxygenating. Multiple RT's and MD at bedside. 50 mg Diprivan administered at 2355. 50 mg Rocuronium administered at 2358. ETT dislodged at 0002. Dr. Brand re-intubated pt with size 8 ETT at 0002. 23 cm at the lip. Positive color change. Pt properly oxygenating.
[2022-09-21] MEDS: PROPOFOL IV EMULSION 100 ML 2.61 MG IV CONT (00:55)
[2022-09-21] MEDS: CEFEPIME 2 GM/NS 50 ML 2 GM/50 ML BAG IVPB (01:08)
[2022-09-21 01:10] LABS: Influenza A QL RT-PCR Negative (Negative); Influenza B QL RT-PCR Negative (Negative); SARS-CoV-2 RNA PCR Negative
--- NOTE | 2022-09-21 01:24 | PC.NURSE ---
OG tube initiated at 0002 Parisi catheter placed at 0100.
[2022-09-21 01:56] LABS: Appearance Urine Clear (Clear); Bacteria Urine None Seen /hpf; Bilirubin Urine Negative (Negative); Blood Urine 3+ (Negative); Color Urine Yellow (Yellow); Glucose Urine UA 3+ mg/dL (Negative); Hyaline Casts Urine Present /lpf; Ketones Urine 1+ mg/dL (Negative); Leukocyte Esterase Ur Negative LEU/UL (Negative); Nitrate Urine Negative (Negative); Protein Urine 3+ mg/dL (Negative); Squamous Epithelial Cell Urine Occasional /hpf (Few); WBC Urine 0-5 /hpf
[2022-09-21 01:58] LABS: Add Urine Microscopic? YES
[2022-09-21 06:00] LABS: Glucose Point of Care 102 mg/dl (65-105)
== END 2022-09-21 01:45 | disposition short-term general hospital (02) ==
PROVIDERS: Emergency Provider Emergency Medicine
DX: G40.909 Epilepsy, unspecified, not intractable, without status epilepticus (principal); J69.0 Pneumonitis due to inhalation of food and vomit; R41.82 Altered mental status, unspecified; Z20.822 Contact with and (suspected) exposure to COVID-19; E11.9 Type 2 diabetes mellitus without complications; E78.00 Pure hypercholesterolemia, unspecified; I10 Essential (primary) hypertension; F41.9 Anxiety disorder, unspecified; Z95.5 Presence of coronary angioplasty implant and graft; Z87.891 Personal history of nicotine dependence; Z96.41 Presence of insulin pump (external) (internal); Z79.84 Long term (current) use of oral hypoglycemic drugs; Z79.4 Long term (current) use of insulin; Z79.82 Long term (current) use of aspirin; I44.4 Left anterior fascicular block; R94.31 Abnormal electrocardiogram [ECG] [EKG]
CPT/HCPCS: 31500; 36415; 36600; 70450; 80053; 81001; 82375; 82805; 82948; 83050; 83605; 83735; 84478; 85025; 85610; 85730; 87636; 93005; 96361; 96365; 96367; 96375; 99291; J0330; J0692; J1953; J2060; J2704; J7030